=== PATIENT | male | born 1970 | race African-American/Black ===

== ENCOUNTER 2024-09-08 10:00 | Emergency (ER) | payer MEDICARE, MEDICAID, SELFPAY ==
[2024-09-08 10:05] VITALS: BP 146/80; PULSE 70; RESP 16; TEMP 36.6; O2SAT 100
--- OUTSIDE RECORDS SUMMARY | 2024-09-08 10:12 | XMS_ITS | Patient Health Summary ---
Author Organization [facility] Address [address] [place] [address] Care Team Providers Care Finish Carpenter Name Role Phone Dena James JANITOR-SHEET ROCK TAPER Primary Care Provider Note from [facility],non-owned Affiliates and Associated Physician Practices is amultiple site organization consisting of ambulatory clinics and hospital sitesin [place], [place], [place] and [place]. This disclosure is being madepursuant to the Care Everywhere program and may not contain all information available regarding this patient. Last updated 18.[facility] Allergies * Diphenhydramine(Unknown) * Ciprofloxacin(Itching) * Diazepam(Unknown) * Zinc(Unknown) Medications * Be aware that medications may not be up to date on this document. Alwaysverify current medications with the patient. * ferrous sulfate 325 (65 FE) MG tablet Take 1 (one) tablet by mouth 2 times daily * Potassium 99 MG tablet Take 1 (one) tablet by mouth every evening * multivitamin daily tablet Take 1 (one) tablet by mouth daily with food * amLODIPine (NORVASC) 5 MG tablet(Started 02/28/2021) Take 1 (one) tablet by mouth once daily * metoprolol succinate XL 24hr (TOPROL XL) 25 MG tablet(Started 02/22/2021) Take 2 (two) tablets by mouth once daily * fluocinonide (Lidex) 0.05 % cream(Started 09/23/2022) Use as directed * lactulose (Chronulac) 10 GM/15ML solution(Started 10/03/2022) TAKE 15 ML BY MOUTH ONCE DAILY NEEDED FOR CONSTIPATION * biotin 300 MCG tablet(Started 11/30/2021) Take 1 (one) tablet by mouth at bedtime Active Problems Problem Noted Date Diagnosed Date Anemia 10/21/2020 Urinary tract infection asso ciated with indwelling urethral catheter 10/21/2020 Resolved Problems Problem Noted Date Diagnosed Date Resolved Date Fever 10/21/2020 10/22/2020 Social History Tobacco Use Types Packs/Day Years Used Date Smoking Tobacco: Never Smokeless Tobacco: Never Tobacco Cessation:Counseling Given: Not Answered Alcohol Use Standard Drinks/Week Comments Never 0 (1 standard drink = 0.6 oz pur e alcohol) AUDIT-C Answer Date Recorded Q1: How often do you have a drink containing alcohol? Never 08/02/2022 Q2: How many drinks containi ng alcohol do you have on a typical day when you are drinking? Patient does not drink Q3: How often do you have si x or more drinks on one occasion? Never 08/02/2022 Sex and Gender Information Value Date Recorded Sex Assigned at Not on file Gender Identity Not on file Sexual Orientation Not on file Last Filed Vital Signs Vital Sign Reading Time Taken Comments Blood Pressure 150/71 10/24/2022 5:29 PM CDT Pulse 80 10/24/2022 5:29 PM CDT Temperature 36.8 C (98.2 F) 10/24/2022 5:29 PM CDT Respiratory Rate 18 10/24/2022 5:29 PM CDT Oxygen Saturation 98% 10/24/2022 5:29 PM CDT Inhaled Oxygen Concentration - - Weight 63.5 kg (140 lb) 10/24/2022 3:25 PM CDT Height 198.1 cm (6' 6 ) 10/24/2022 3:25 PM CDT Body Mass Index 16.18 10/24/2022 3:25 PM CDT Procedures * URINE MICROSCOPIC ONLY(Performed 10/24/2022) * URINALYSIS REFLEX TO MICROSCOPIC NO CULTURE(Performed 10/24/2022) * CULTURE URINE(Performed 10/24/2022) * URINE MICROSCOPIC ONLY REFLEX TO CULTURE(Performed 08/02/2022) * URINALYSIS REFLEX MICROSCOPIC REFLEX CULTURE(Performed 08/02/2022) * CULTURE URINE(Performed 08/02/2022) * CT ABDOMEN PELVIS W CONTRAST(Performed 06/19/2021) Performed for Suprapubic catheter dysfunction, initial encounter (HCC), Abdominal pain, generalized * CULTURE WOUND+GRAM STAIN(Performed 06/19/2021) * URINE MICROSCOPIC ONLY REFLEX TO CULTURE(Performed 06/19/2021) * URINALYSIS REFLEX MICROSCOPIC REFLEX CULTURE(Performed 06/19/2021) * CULTURE URINE(Performed 06/19/2021) * CULTURE BLOOD(Performed 06/19/2021) * PROCALCITONIN LEVEL(Performed 06/19/2021) * COMPREHENSIVE METABOLIC PANEL(Performed 06/19/2021) * CBC W AUTO DIFFERENTIAL(Performed 06/19/2021) * LACTIC ACID BLOOD REFLEX TO REPEAT(Performed 06/19/2021) * CULTURE BLOOD(Performed 06/19/2021) * ED CRITICAL CARE(Performed 06/19/2021) Performed for Suprapubic catheter dysfunction, initial encounter (HCC), Abdominal pain, generalized * CARDIAC EKG ORDER(Performed 03/19/2021) * COMPREHENSIVE METABOLIC PANEL(Performed 03/15/2021) * CBC W AUTO DIFFERENTIAL(Performed 03/15/2021) * EKG 12-LEAD(Performed 03/15/2021) Performed for Essential hypertension * SLIDE SCAN HEMATOLOGY(Performed 10/22/2020) * CBC W AUTO DIFFERENTIAL(Performed 10/22/2020) * BASIC METABOLIC PANEL (CALCIUM TOTAL)(Performed 10/22/2020) * IRON + TRANSFERRIN PANEL(Performed 10/22/2020) * PLATELET COUNT AUTO(Performed 10/22/2020) * CREATININE BLOOD(Performed 10/22/2020) * XR CHEST 1VW PORTABLE(Performed 10/21/2020) Performed for Fever in other diseases * URINE MICROSCOPIC ONLY REFLEX TO CULTURE(Performed 10/20/2020) * URINALYSIS REFLEX MICROSCOPIC REFLEX CULTURE(Performed 10/20/2020) * CULTURE URINE(Performed 10/20/2020) * CULTURE BLOOD(Performed 10/20/2020) * CULTURE BLOOD(Performed 10/20/2020) * DIFFERENTIAL MANUAL(Performed 10/20/2020) * LACTIC ACID BLOOD REFLEX TO REPEAT(Performed 10/20/2020) * COMPREHENSIVE METABOLIC PANEL(Performed 10/20/2020) * CBC W AUTO DIFFERENTIAL(Performed 10/20/2020) * URINE MICROSCOPIC ONLY REFLEX TO CULTURE(Performed 2020) * URINALYSIS REFLEX MICROSCOPIC REFLEX CULTURE(Performed 2020) * CULTURE URINE(Performed 2020) * GROSS + MICRO EXAM(Performed 09/19/1998) Results * (ABNORMAL) URINALYSIS REFLEX TO MICROSCOPIC NO CULTURE (10/24/2022 3:36 PM CDT) Color UA Yellow Straw, Yellow, Dark Yellow 10/24/2022 4:00 PM CDT [facility] Clarity UA Slt Cloudy(A) Clear 10/24/2022 4:00 PM CDT [facility] Glucose UA Negative Negative 10/24/2022 4:00 PM CDT [facility] Bilirubin UA Negative Negative 10/24/2022 4:00 PM CDT [facility] Ketone UA 1+(A) Negative 10/24/2022 4:00 PM CDT [facility] Specific [place] UA 1.014 1.005 - 1.030 10/24/2022 4:00 PM CDT [facility] Blood UA 2+(A) Negative 10/24/2022 4:00 PM CDT [facility] pH UA 6.0 5.0 - 8.0 pH 10/24/2022 4:00 PM CDT [facility] Protein UA 2+(A) Negative 10/24/2022 4:00 PM CDT [facility] Urobilinogen UA Negative Negative mg/dL 10/24/2022 4:00 PM CDT [facility] Nitrite UA Positive(A) Negative 10/24/2022 4:00 PM CDT [facility] Leukocyte UA 3+(A) Negative 10/24/2022 4:00 PM CDT [facility] Urine Microscopy Urine microscopy to follow 10/24/2022 4:00 PM CDT [facility] Urine URINE SPECIMEN COLLECTION, CATHETERIZED / Unknown Collection / Unknown 10/24/2022 3:36 PM CDT 10/24/2022 3:42 PM CDT Narrative [facility] - 10/24/2022 4:00 PM CDT Ascorbic Acid can cause false negative urine strip tests for blood, glucose, nitrite, and bilirubin. Mayra Neil APRN-SHEET ROCK TAPER LAB - URINALYSIS ORD ERABLES Performing Organization Address [facility]/ZIP Co de Phone Number [facility] [address] * (ABNORMAL) URINE MICROSCOPIC ONLY (10/24/2022 3:36 PM CDT) Pathologist [facility] RBC UA 11-20(A) 0 - 5 # /hpf 10/24/2022 4:00 PM CDT [facility] WBC UA 21-50(A) None Seen, 0-5 # /hpf 10/24/2022 4:00 PM CDT [facility] Budding Yeast Occasional (A) None seen /hpf 10/24/2022 4:00 PM CDT [facility] Hyaline Casts 0-2 None Seen, 0-2 /LPF 10/24/2022 4:00 PM CDT [facility] Bacteria UA 2+(A) None Seen 10/24/2022 4:00 PM CDT [facility] Squamous Epithelial Cells None Seen None Seen, 0-2, 3-5 /hpf 10/24/2022 4:00 PM CDT [facility] Mucus UA 1+ /LPF 10/24/2022 4:00 PM CDT [facility] Urine URINE SPECIMEN COLLECTION, CATHETERIZED / Unknown Collection / Unknown 10/24/2022 3:36 PM CDT 10/24/2022 3:42 PM CDT Narrative [facility] - 10/24/2022 4:00 PM CDT Mayra Neil JANITOR-SHEET ROCK TAPER LAB - URINALYSIS ORD ERABLES Performing Organization Address [facility] Co de Phone Number [facility] [address] * CULTURE URINE (10/24/2022 3:36 PM CDT) Only the most recent of5 resultswithin the time period is included. Pathologist [facility] Culture Urine More than 2 organisms seen at >=50,000 CFU/mL. Recollect if clinically indicated. YINA 10/26/2022 3:09 PM CDT [facility] Urine URINE SPECIMEN OBTAINED BY CLEAN CATCH PROCEDURE / Unknown Collection / Unknown 10/24/2022 3:36 PM CDT 10/24/2022 3:42 PM CDT Narrative [facility] - 10/26/2022 3:09 PM CDT Mayra MEJIA LAB - MICROBIOLOGY O RDERABLES [facility] [address] [place] [address], [facility] [phone] * (ABNORMAL) URINE MICROSCOPIC ONLY REFLEX TO CULTURE (08/02/2022 6:55 PM INSTRUMENT ASSEMBLY SUPERVISOR) Only the most recent of4 resultswithin the time period is included. Reflex Status Culture to follow 08/02/2022 7:11 PM INSTRUMENT ASSEMBLY SUPERVISOR [facility] RBC UA 11-20(A) 0 - 5 # /hpf 08/02/2022 7:11 PM [facility] WBC UA >100(A) None Seen, 0-5 # /hpf 08/02/2022 7:11 PM [facility] WBC Clumps UA Few(A) None Seen /HPF 08/02/2022 7:11 PM [facility] Bacteria UA 3+(A) None Seen 08/02/2022 7:11 PM [facility] Squamous Epithelial Cells 0-2 None Seen, 0-2, 3-5 /hpf 08/02/2022 7:11 PM [facility] Mucus UA 1+ /LPF 08/02/2022 7:11 PM [facility] Urine SUPRAPUBIC URINE SPECIMEN / Unknown Collection / Unknown 08/02/2022 6:55 PM INSTRUMENT ASSEMBLY SUPERVISOR 08/02/2022 7:02 PM INSTRUMENT ASSEMBLY SUPERVISOR Narrative [facility] - 08/02/2022 7:11 PM INSTRUMENT ASSEMBLY SUPERVISOR Ilan Jiang DO LAB - URINALYSIS ORD ERABLES [facility] [address] [place], [place] [id number] [place] [address] * (ABNORMAL) URINALYSIS REFLEX MICROSCOPIC REFLEX CULTURE (08/02/2022 6:55 PM INSTRUMENT ASSEMBLY SUPERVISOR) Only the most recent of4 resultswithin the time period is included. Color UA Yellow Straw, Yellow, Dark Yellow 08/02/2022 7:11 PM [facility] Clarity UA Cloudy(A) Clear 08/02/2022 7:11 PM INSTRUMENT ASSEMBLY SUPERVISOR [facility] Glucose UA Negative Negative 08/02/2022 7:11 PM [facility] Bilirubin UA Negative Negative 08/02/2022 7:11 PM [facility] Ketone UA Trace(A) Negative 08/02/2022 7:11 PM [facility] Specific [place] UA 1.014 1.005 - 1.030 08/02/2022 7:11 PM [facility] Blood UA 1+(A) Negative 08/02/2022 7:11 PM [facility] pH UA 6.0 5.0 - 8.0 pH 08/02/2022 7:11 PM [facility] Protein UA 2+(A) Negative 08/02/2022 7:11 PM [facility] Urobilinogen UA Negative Negative mg/dL 08/02/2022 7:11 PM [facility] Nitrite UA Negative Negative 08/02/2022 7:11 PM [facility] Leukocyte UA 3+(A) Negative 08/02/2022 7:11 PM [facility] Urine Microscopy Urine microscopy to follow 08/02/2022 7:11 PM [facility] Urine SUPRAPUBIC URINE SPECIMEN / Unknown Collection / Unknown 08/02/2022 6:55 PM INSTRUMENT ASSEMBLY SUPERVISOR 08/02/2022 7:02 PM [facility] Narrative [facility] - 08/02/2022 7:11 PM [facility] Ascorbic Acid can cause false negative urine strip tests for blood, glucose, nitrite, and bilirubin. Ilan Jiang DO LAB - URINALYSIS ORD ERABLES Performing Organization Address City/State/[facility] Co de Phone Number [facility] [address] * CT ABDOMEN AND PELVIS W IV CONTRAST [id number] (06/19/2021 12:00 PM INSTRUMENT ASSEMBLY SUPERVISOR) Anatomical Region Laterality Modality Abdomen, Pelvis Computed Tomogra phy 06/19/2021 12:3 7 PM INSTRUMENT ASSEMBLY SUPERVISOR Addenda Addendum by Jessica Sanchez MD on 06/19/2021 12:56 PM INSTRUMENT ASSEMBLY SUPERVISOR Addendum should read as follows. Please disregard sentence pulmonary embolus. Instead it should read unremarkable adrenal glands. *Addending Radiologist: Jessica Sanchez on 06/19/2021 at 12:53 PM Impressions 06/19/2021 12:39 PM INSTRUMENT ASSEMBLY SUPERVISOR As described above *Reading Radiologist: Jessica Sanchez on 06/19/2021 at 12:39 PM Narrative 06/19/2021 12:39 PM INSTRUMENT ASSEMBLY SUPERVISOR PROCEDURE: CT ABDOMEN PELVIS W CONTRAST 06/19/2021 12:37 PM HISTORY: Breakdown (mechanical) of cystostomy catheter, initial encounter. FINDINGS AND IMPRESSION: COMPARISON: No comparison. CONTRAST: 80 cc Isovue-300 IV. Radiation dose reduction technique was utilized. FINDINGS: Lung bases are clear. No intrahepatic ductal dilation or mass lesions. Spleen is normal. Significant cholelithiasis. Contracted gallbladder. Pulmonary embolus. Unremarkable pancreas. Redemonstration of bilateral renal cysts. Kidneys otherwise are unremarkable Catheter is noted in bladder. No free fluid or lymphadenopathy. No focal intra-abdominal pelvic mass. No evidence of small bowel obstruction. Constipation. Appendix is normal. Abdominal aortic atherosclerosis. No evidence of AAA. DJD spine. Deformities of hip joint space erosive changes. Procedure Note Jessica Sanchez MD - 06/19/2021 PROCEDURE: CT ABDOMEN PELVIS W CONTRAST 06/19/2021 12:37 PM HISTORY: Breakdown (mechanical) of cystostomy catheter, initial encounter. FINDINGS AND IMPRESSION: COMPARISON: No comparison. CONTRAST: 80 cc Isovue-300 IV. Radiation dose reduction technique was utilized. FINDINGS: Lung bases are clear. No intrahepatic ductal dilation or mass lesions. Spleen is normal. Significant cholelithiasis. Contracted gallbladder. Pulmonary embolus. Unremarkable pancreas. Redemonstration of bilateral renal cysts. Kidneys otherwise are unremarkable Catheter is noted in bladder. No free fluid or lymphadenopathy. No focal intra-abdominal pelvic mass. No evidence of small bowel obstruction. Constipation. Appendix is normal. Abdominal aortic atherosclerosis. No evidence of AAA. DJD spine. Deformities of hip joint space erosive changes. IMPRESSION As described above *Reading Radiologist: Jessica Sanchez on 06/19/2021 at 12:39 PM Kim Espinoza MD CT ORDERABLES * (ABNORMAL) CULTURE WOUND+GRAM STAIN (06/19/2021 10:41 AM INSTRUMENT ASSEMBLY SUPERVISOR) Culture Heavy Pseudomonas aeruginosa(A) YINA 06/22/2021 11:11 PM INSTRUMENT ASSEMBLY SUPERVISOR [facility] Culture Heavy Pseudomonas aeruginosa(A) YINA 06/22/2021 11:11 PM [facility] Comment:Strain 2 Culture Heavy Klebsiella pneumoniae(A) YINA 06/22/2021 11:11 PM [facility] Culture Heavy Corynebacterium species(A) YINA 06/22/2021 11:11 PM [facility] Culture Moderate Staphylococcus aureus methicillin-resista nt (MRSA)(A) YINA 06/22/2021 11:11 PM [facility] Comment:Staphylococcus aureu s methicillin-resistant (MRSA) detected by penicillin binding protein immunoassay. Contact precautions required. Conventional antibiotic susceptibility testing to follow. Gram Stain Moderate Polymorphonuclear cells 06/22/2021 11:11 PM [facility] Gram Stain Light Red blood cells 06/22/2021 11:11 PM [facility] Gram Stain Light Squamous epithelial cells 06/22/2021 11:11 PM [facility] Gram Stain Heavy Gram-positive bacilli 06/22/2021 11:11 PM [facility] Gram Stain Light Gram-positive cocci 06/22/2021 11:11 PM [facility] Microbiology ASSESSMENT OF CATHETER ENTRY SITE / Unknown Collection / Unknown 06/19/2021 10:41 AM INSTRUMENT ASSEMBLY SUPERVISOR 06/19/2021 10:46 AM [facility] - 06/22/2021 11:11 PM [facility] Methicillin-resistant Staphylococci (MRSA) are resistant to all currently available beta-lactam antibiotics with the exception of the newer cephalosporins with anti-MRSA activity. Contact precautions required. Organism Antibiotic Method Susceptibility Pseudomonas aeruginosa Amikacin YINA <=2 ug/mL: Susceptible Pseudomonas aeruginosa Cefepime YINA 4 ug/mL: Susceptible Pseudomonas aeruginosa Ceftazidime YINA 8 ug/mL: Susceptible Pseudomonas aeruginosa Ciprofloxacin YINA 1 ug/mL: Intermediate Pseudomonas aeruginosa Gentamicin YINA <=1 ug/mL: Susceptible Pseudomonas aeruginosa Meropenem YINA 4 ug/mL: Intermediate Pseudomonas aeruginosa Tobramycin YINA <=1 ug/mL: Susceptible Pseudomonas aeruginosa Piperacillin-tazobactam KB Susceptible Pseudomonas aeruginosa Amikacin YINA <=2 ug/mL: Susceptible Pseudomonas aeruginosa Cefepime YINA <=1 ug/mL: Susceptible Pseudomonas aeruginosa Ceftazidime YINA 2 ug/mL: Susceptible Pseudomonas aeruginosa Ciprofloxacin YINA 1 ug/mL: Intermediate Pseudomonas aeruginosa Gentamicin YINA <=1 ug/mL: Susceptible Pseudomonas aeruginosa Meropenem YINA 2 ug/mL: Susceptible Pseudomonas aeruginosa Piperacillin-tazobactam YINA <=4 ug/mL: Susceptible Pseudomonas aeruginosa Tobramycin YINA <=1 ug/mL: Susceptible Klebsiella pneumoniae Amikacin YINA <=2 ug/mL: Susceptible Klebsiella pneumoniae Ampicillin-sulbactam YINA 16 ug/mL: Intermediate Klebsiella pneumoniae Cefepime YINA <=1 ug/mL: Susceptible Klebsiella pneumoniae Ceftriaxone YINA <=1 ug/mL: Susceptible Klebsiella pneumoniae Ciprofloxacin YINA 1 ug/mL: Resistant Klebsiella pneumoniae Extended-Spectrum Beta-Lactamase YINA NEG ug/mL: Neg Klebsiella pneumoniae Gentamicin YINA <=1 ug/mL: Susceptible Klebsiella pneumoniae Meropenem YINA <=0.25 ug/mL: Susceptible Klebsiella pneumoniae Piperacillin-tazobactam YINA 8 ug/mL: Susceptible Klebsiella pneumoniae Tobramycin YINA <=1 ug/mL: Susceptible Klebsiella pneumoniae Trimethoprim-sulfa methox azole YINA <=20 ug/mL: Susceptible Comment: Automated methods are unable to differentiate between susceptible and intermediate results for cefazolin in Enterobacteriaceae from sources other than urine. Therefore, results are only reported when resistance is detected. If cefazolin susceptibility testing is needed but not reported, please call microbiology lab to request manual [phone]. Staphylococcus aureus methicillin-resistant (MRSA) Clindamycin YINA 0.25 ug/mL: Susceptible Staphylococcus aureus methicillin-resistant (MRSA) Doxycycline YINA 1 ug/mL: Susceptible Staphylococcus aureus methicillin-resistant (MRSA) Gentamicin YINA <=0.5 ug/mL: Susceptible Staphylococcus aureus methicillin-resistant (MRSA) Inducible Clindamycin Resistance YINA NEG ug/mL: Neg Staphylococcus aureus methicillin-resistant (MRSA) Linezolid YINA 2 ug/mL: Susceptible Staphylococcus aureus methicillin-resistant (MRSA) Oxacillin YINA >=4 ug/mL: Resistant Staphylococcus aureus methicillin-resistant (MRSA) Tetracycline YINA <=1 ug/mL: Susceptible Staphylococcus aureus methicillin-resistant (MRSA) Trimethoprim-sulfamethox azole YINA <=10 ug/mL: Susceptible Staphylococcus aureus methicillin-resistant (MRSA) Vancomycin YINA <=0.5 ug/mL: Susceptible Kim Espinoza MD LAB - MICROBIOLOGY O RDERABLES [facility] [address] [place], [place] [address] [phone] * CULTURE BLOOD (06/19/2021 10:36 AM INSTRUMENT ASSEMBLY SUPERVISOR) Only the most recent of4 resultswithin the time period is included. Culture No growth day 5 YINA 06/25/2021 12:00 AM INSTRUMENT ASSEMBLY SUPERVISOR [facility] Blood PERIPHERAL BLOOD / Unknown Venipuncture / Unknown 06/19/2021 10:36 AM INSTRUMENT ASSEMBLY SUPERVISOR 06/19/2021 10:46 AM INSTRUMENT ASSEMBLY SUPERVISOR Kim Espinoza MD LAB - MICROBIOLOGY O RDERABLES [facility] [address] [place] [address], [facility] [phone] * LACTIC ACID BLOOD REFLEX TO REPEAT (06/19/2021 10:31 AM INSTRUMENT ASSEMBLY SUPERVISOR) Only the most recent of2 resultswithin the time period is included. Lactic Acid 1.76 0.5 - 2 mmol/L 06/19/2021 11:05 AM INSTRUMENT ASSEMBLY SUPERVISOR [facility] Comment:3+ hemolysis Blood BLOOD SPECIMEN / Unknown Venipuncture / Unknown 06/19/2021 10:31 AM INSTRUMENT ASSEMBLY SUPERVISOR 06/19/2021 10:46 AM INSTRUMENT ASSEMBLY SUPERVISOR Kim Espinoza MD LAB - CHEMISTRY ORDE [facility] [address] * PROCALCITONIN LEVEL (06/19/2021 10:31 AM INSTRUMENT ASSEMBLY SUPERVISOR) Procalcitonin 0.07 <=0.10 ng/mL 06/19/2021 11:32 AM INSTRUMENT ASSEMBLY SUPERVISOR [facility] Comment:2+ hemolysis Blood BLOOD SPECIMEN / Unknown Venipuncture / Unknown 06/19/2021 10:31 AM INSTRUMENT ASSEMBLY SUPERVISOR 06/19/2021 10:46 AM INSTRUMENT ASSEMBLY SUPERVISOR Narrative [facility] - 06/19/2021 11:32 AM INSTRUMENT ASSEMBLY SUPERVISOR If baseline PCT is - >2.0 ng/mL: A PCT level above 2.0 ng/mL on the first day of ICU admission is associated with a high risk for progression to severe sepsis and/or septic shock. - <0.5 ng/mL: A PCT level below 0.5 ng/mL on the first day of ICU admission is associated with a low risk for progression to severe sepsis and/or septic shock. If the Procalcitonin measurement is performed shortly after systemic infection process has started (usually less than 6 hours), these values may still be low. As various non-infectious conditions are known to induce procalcitonin as well, Procalcitonin levels between 0.50 ng/mL and 2.00 ng/mL should be reviewed carefully to take into account the specific clinical background and condition(s) of the individual patient. The change in procalcitonin (PCT) concentration over time provides support in decision making on antibiotic discontinuation for suspected or confirmed septic patients and for suspected or confirmed lower respiratory tract infection (LRTI). Follow-up samples should be tested once every 1-2 days based upon physician discretion taking into account the patient's evolution and progress. Discontinuation of antibiotic therapy may be considered for suspected or confirmed septic patients if the current PCT is <= 0.5 ng/mL or <= 0.25 ng/mL for confirmed LRTI. If the PCT delta drop is > 80% in either condition, discontinuation of antibiotic therapy may be indicated. Duration of antibiotics should not be determined solely on PCT; established guidelines for the indication should be followed. Results should be interpreted in the context of a patient's clinical status and other laboratory tests. PCT peak: Highest observed PCT concentration PCT current: Most recent PCT concentration Calculate delta PCT using the following equation: Delta PCT = PCT Peak - PCT current X 100% PCT Peak The Change in Procalcitonin Calculator is available at [email or web address] If clinical picture has not improved and PCT remains high, reevaluate and consider treatment failure or other causes. Kim Espinoza MD LAB - CHEMISTRY [facility]IRY DUEÑAS [facility] Organization Address City/State/ZIP Co de Phone Number [facility] [address] * (ABNORMAL) CBC W AUTO DIFFERENTIAL (06/19/2021 10:31 AM INSTRUMENT ASSEMBLY SUPERVISOR) Only the most recent of4 resultswithin the time period is included. [facility] Signature WBC 7.4 4.0 - 10.0 x10E9/L 06/19/2021 10:50 AM [facility] RBC 3.70(L) 4.40 - 6.10 x10E12/L 06/19/2021 10:50 AM [facility] Hemoglobin 9.6(L) 13.7 - 17.5 gm/dL 06/19/2021 10:50 AM [facility] Hematocrit 29.3(L) 40.1 - 51.0 % 06/19/2021 10:50 AM [facility] MCV 79.2 78.0 - 100.0 fl 06/19/2021 10:50 AM [facility] MCH 25.9 25.6 - 34.0 pg 06/19/2021 10:50 AM [facility] MCHC 32.8 32.3 - 36.5 gm/dL 06/19/2021 10:50 AM [facility] RDW 17.7(H) 11.6 - 14.4 % 06/19/2021 10:50 AM [facility] MPV 9.8 9.4 - 12.4 fl 06/19/2021 10:50 AM [facility] Platelet Count 396(H) 163 - 369 x10E9/L 06/19/2021 10:50 AM [facility] Neutrophils % 66.6 40.0 - 75.0 % 06/19/2021 10:50 AM [facility] Lymphocytes % 14.5(L) 19.3 - 53.1 % 06/19/2021 10:50 AM [facility] Monocytes % 16.5(H) 4.7 - 12.5 % 06/19/2021 10:50 AM [facility] Eosinophils % 1.8 0.7 - 7.0 % 06/19/2021 10:50 AM [facility] Basophils % 0.3 0.1 - 1.2 % 06/19/2021 10:50 AM [facility] Immature Granulocytes 0.3 0 - 0.5 % 06/19/2021 10:50 AM [facility] Neutrophil Absolute 4.94 1.56 - 6.13 x10E9/L 06/19/2021 10:50 AM [facility] Lymphocytes Absolute 1.07(L) 1.18 - 3.74 x10E9/L 06/19/2021 10:50 AM [facility] Monocytes Absolute 1.22(H) 0.24 - 0.86 x10E9/L 06/19/2021 10:50 AM [facility] Eosinophils Absolute 0.13 0.04 - 0.54 x10E9/L 06/19/2021 10:50 AM [facility] Basophils Absolute 0.02 0.01 - 0.08 x10E9/L 06/19/2021 10:50 AM [facility] Immature Granulocytes Absolute 0.02 0 - 0.03 x10E9/L 06/19/2021 10:50 AM [facility] nRBC Auto 0 <=0 /100 WBC 06/19/2021 10:50 AM [facility] nRBC Absolute 0.00 <=0 x10E9/L 06/19/2021 10:50 AM [facility] Blood BLOOD SPECIMEN / Unknown Venipuncture / Unknown 06/19/2021 10:31 AM INSTRUMENT ASSEMBLY SUPERVISOR 06/19/2021 10:46 AM [facility] Kim Espinoza MD LAB - HEMATOLOGY ORD ERABLES Performing Organization Address City/State/[facility] [place] Co de Phone Number [facility] [address] * (ABNORMAL) COMPREHENSIVE METABOLIC PANEL (06/19/2021 10:31 AM [facility]) Only the most recent of3 resultswithin the time period is included. [facility] Signature Glucose 100 70 - 125 mg/dL 06/19/2021 11:13 AM [facility] Sodium 138 136 - 145 mmol/L 06/19/2021 11:13 AM [facility] Potassium 4.0 3.4 - 4.5 mmol/L 06/19/2021 11:13 AM [facility] Comment:2+ hemolysis Chloride 104 98 - 107 mmol/L 06/19/2021 11:13 AM [facility] CO2 23 22 - 29 mmol/L 06/19/2021 11:13 AM [facility] Calcium 9.3 8.4 - 10.2 mg/dL 06/19/2021 11:13 AM [facility] Anion Gap 15 10 - 20 mmol/L 06/19/2021 11:13 AM [facility] BUN 13.1 8.4 - 25.7 mg/dL 06/19/2021 11:13 AM [facility] Creatinine 0.70(L) 0.72 - 1.25 mg/dL 06/19/2021 11:13 AM [facility] eGFR by MDRD >60 >60 mL/min/1.7 3m2 06/19/2021 11:13 AM [facility] eGFR by MDRD >60 >60 mL/min/1.7 3m2 06/19/2021 11:13 AM [facility] Alkaline Phosphatase 107 40 - 150 U/L 06/19/2021 11:13 AM [facility] ALT 14 5 - 55 U/L 06/19/2021 11:13 AM [facility] AST 27 5 - 34 U/L 06/19/2021 11:13 AM [facility] Protein Total 8.5(H) 6.4 - 8.3 gm/dL 06/19/2021 11:13 AM [facility] Albumin 2.1(L) 3.5 - 5.0 gm/dL 06/19/2021 11:13 AM [facility] Globulin Total 6.4(H) 2.6 - 4.0 gm/dL 06/19/2021 11:13 AM [facility] Albumin/Globulin Ratio 0.3(L) 0.9 - 1.6 06/19/2021 11:13 AM [facility] Bilirubin Total 0.2 0.2 - 1.2 mg/dL 06/19/2021 11:13 AM [facility] Blood BLOOD SPECIMEN / Unknown Venipuncture / Unknown 06/19/2021 10:31 AM INSTRUMENT ASSEMBLY SUPERVISOR 06/19/2021 10:46 AM [facility] Kim Espinoza MD LAB - CHEMISTRY GUSTAVOE LEANA [facility] Organization Address City/State/[facility] [place] Co de Phone Number [facility] [address] * Critical Care (06/19/2021 9:57 AM INSTRUMENT ASSEMBLY SUPERVISOR) Narrative Kim Espinoza MD - 06/19/2021 9:57 AM INSTRUMENT ASSEMBLY SUPERVISOR Kim Espinoza MD 06/19/2021 1:09 PM Critical Care Performed by: Kim Espinoza MD Authorized by: Kim Espinoza MD Critical care provider statement: Critical care time (minutes): 31 Critical care was necessary to treat or prevent imminent or life-threatening deterioration of the following conditions: Sepsis Critical care was time spent personally by me on the following activities: Ordering and performing treatments and interventions, ordering and review of laboratory studies, ordering and review of radiographic studies, pulse oximetry, re-evaluation of patient's condition, review of old charts, examination of patient, evaluation of patient's response to treatment, discussions with primary provider, discussions with consultants, development of treatment plan with patient or surrogate and blood draw for specimens Kim Espinoza MD PROCEDURE/MINOR SURG ICAL ORDERABLES * CARDIAC EKG ORDER (03/19/2021 6:00 AM CDT) Narrative 03/19/2021 6:00 AM CDT Ordered by an unspecified provider. Scanned Document CARDIAC SERVICES ORD ERABLES * EKG 12-LEAD (03/15/2021 8:39 AM CDT) Ventricular Rate 62 BPM [facility] Atrial Rate 62 BPM [facility] P-R Interval 118 ms [facility] QRS Duration ms 94 ms [facility] Q-T Interval ms 412 ms [facility] QTC Calculation (Bezet) 418 ms [facility] Calculated P Haskins 49 degrees [facility] MUSE Calculated R [place] 68 degrees [facility] M[facility] Calculated T [place] 47 degrees [facility] Interpretation EKG NORMAL SINUS RHYTHM NONSPECIFIC T WAVE ABNORMALITY ABNORMAL ECG CONFIRMED BY DR PAGAN ON 03/15/2021 Confirmed by JUSTIN PAGAN MD ([id number]), newspaper managing editor IRIS MANE ([id number]) on 03/23/2021 9:25:42 AM [facility] 03/15/2021 8:39 AM CDT 03/23/2021 9:25 AM CDT Zamzam Morales MD ECG ORDERABLES [facility] * (ABNORMAL) SLIDE SCAN HEMATOLOGY (10/22/2020 10:33 AM CDT) [facility] Platelet Estimation Increased( A) Normal, Adequate platelets 10/22/2020 12:14 PM CDT [facility] WBC Morph Normal 10/22/2020 12:14 PM CDT [facility] Anisocytosis 2+(A) None 10/22/2020 12:14 PM CDT [facility] Hypochromia 2+(A) None 10/22/2020 12:14 PM CDT [facility] Large Platelets 1+(A) None 12:14 PM CDT [facility] Blood BLOOD SPECIMEN / Unknown Lab Venipuncture / Unknown 10/22/2020 10:33 AM CDT 10/22/2020 10:36 AM CDT Bret Soto MD LAB - HEMATOLOG Y ORDERABLES Performing Organization Address City/[facility] de Phone Number [facility] [address] * BASIC METABOLIC PANEL (CALCIUM TOTAL) (10/22/2020 10:33 AM CDT) [facility] Glucose 87 70 - 125 mg/dL 10/22/2020 10:57 AM CDT [facility] Sodium 139 136 - 145 mmol/L 10/22/2020 10:57 AM CDT [facility] Potassium 3.6 3.4 - 4.5 mmol/L 10/22/2020 10:57 AM CDT [facility] Chloride 106 98 - 107 mmol/L 10/22/2020 10:57 AM CDT [facility] CO2 23 22 - 29 mmol/L 10/22/2020 10:57 AM CDT [facility] Calcium 8.5 8.4 - 10.2 mg/dL 10/22/2020 10:57 AM CDT [facility] Anion Gap 14 10 - 20 mmol/L 10/22/2020 10:57 AM CDT [facility] BUN 9.5 8.4 - 25.7 mg/dL 10/22/2020 10:57 AM CDT [facility] Creatinine 0.79 0.72 - 1.25 mg/dL 10/22/2020 10:57 AM CDT [facility] eGFR by MDRD >60 >60 mL/min/1.7 3m2 10/22/2020 10:57 AM CDT [facility] eGFR by MDRD >60 >60 mL/min/1.7 3m2 10/22/2020 10:57 AM CDT [facility] Blood BLOOD SPECIMEN / Unknown Lab Venipuncture / Unknown 10/22/2020 10:33 AM CDT 10/22/2020 10:36 AM CDT Bret Soto MD LAB - CHEMISTRY ORDERABLES Performing Organization Address [facility] Co de Phone Number [facility] [address] * (ABNORMAL) PLATELET COUNT AUTO (10/22/2020 3:21 AM CDT) Platelet Count 568(H) 163 - 369 x10E9/L 10/22/2020 3:53 AM CDT [facility] Blood BLOOD SPECIMEN / Unknown Lab Venipuncture / Unknown 10/22/2020 3:21 AM CDT 10/22/2020 3:49 AM CDT Amadeo Prescott MD LAB - HEMATOLOGY ORD ERABLES Performing Organization Address [facility] Co de Phone Number [facility] [address] [place] [address] * CREATININE BLOOD (10/22/2020 3:21 AM CDT) Creatinine 0.73 0.72 - 1.25 mg/dL 10/22/2020 4:12 AM CDT [facility] eGFR by MDRD >60 >60 mL/min/1.7 3m2 10/22/2020 4:12 AM CDT [facility] eGFR by MDRD >60 >60 mL/min/1.7 3m2 10/22/2020 4:12 AM CDT [facility] Blood BLOOD SPECIMEN / Unknown Lab Venipuncture / Unknown 10/22/2020 3:21 AM CDT 10/22/2020 3:49 AM CDT Amadeo Prescott MD LAB - CHEMISTRY ORDE LEANA Performing Organization Address [facility] de Phone Number [facility] [address] * (ABNORMAL) IRON + TRANSFERRIN PANEL (10/22/2020 3:21 AM CDT) [facility] Signature Iron 24(L) 65 - 175 ug/dL 10/22/2020 4:12 AM CDT [facility] Transferrin 109(L) 174 - 364 mg/dL 10/22/2020 4:12 AM CDT [facility] TIBC Calculated 136(L) 261 - 497 ug/dL 10/22/2020 4:12 AM CDT [facility] Iron Saturation % 18 11 - 45 % 10/22/2020 4:12 AM CDT [facility] Blood BLOOD SPECIMEN / Unknown Lab Venipuncture / Unknown 10/22/2020 3:21 AM CDT 10/22/2020 3:49 AM CDT Amadeo Prescott MD LAB - CHEMISTRY KEIRY DUEÑAS Performing Organization Address [facility] de Phone Number [facility] [address] * XR CHEST 1VW PORTABLE (10/21/2020 1:16 AM CDT) Anatomical Region Laterality Modality Chest Radiographic Samira ging 10/21/2020 6:56 AM CDT Impressions 10/21/2020 6:56 AM CDT No acute pathology or change Narrative 10/21/2020 6:56 AM CDT PROCEDURE: XR CHEST 1VW PORTABLE 10/21/2020 6:56 AM HISTORY: Fever presenting with conditions classified elsewhere. FINDINGS AND IMPRESSION: COMPARISON: No comparison. FINDINGS: Portable chest x-ray was obtained and compared to prior study. Clear lungs allowing for portable technique. The heart and vessels are radiographically normal. No soft tissue or bone abnormality is seen. Procedure Note Zeke Potter MD - 10/21/2020 PROCEDURE: XR CHEST 1VW PORTABLE 10/21/2020 6:56 AM HISTORY: Fever presenting with conditions classified elsewhere. FINDINGS AND IMPRESSION: COMPARISON: No comparison. FINDINGS: Portable chest x-ray was obtained and compared to prior study. Clear lungs allowing for portable technique. The heart and vessels are radiographically normal. No soft tissue or bone abnormality is seen. IMPRESSION No acute pathology or change Moreno E Long DO DIAGNOSTIC IMAGING O RDERABLES * (ABNORMAL) DIFFERENTIAL MANUAL (10/20/2020 8:59 PM CDT) WBC Auto 9.7 4.0 - 10.0 x10E9/L 10/20/2020 9:54 PM CDT [facility] Neutrophils % Manual 69 40 - 75 % 10/20/2020 9:54 PM CDT [facility] Lymphocytes % Manual 14(L) 19 - 53 % 10/20/2020 9:54 PM CDT [facility] Monocytes % Manual 14(H) 5 - 13 % 10/20/2020 9:54 PM CDT [facility] Eosinophils % Manual 3 1 - 7 % 10/20/2020 9:54 PM CDT [facility] Neutrophils Absolute Manual 6.7(H) 1.6 - 6.1 x10E3/uL 10/20/2020 9:54 PM CDT [facility] Lymphocytes Absolute Manual 1.4 1.2 - 3.7 x10E3/uL 10/20/2020 9:54 PM CDT [facility] Monocytes Absolute Manual 1.4(H) 0.2 - 0.9 x10E3/uL 10/20/2020 9:54 PM CDT [facility] Eosinophils Absolute Manual 0.3 0.0 - 0.5 x10E3/uL 10/20/2020 9:54 PM CDT [facility] Cells Counted 100 # cells 10/20/2020 9:54 PM CDT [facility] Platelet Estimation Increased( A) Normal, Adequate platelets 10/20/2020 9:54 PM CDT [facility] WBC Morph Normal 10/20/2020 9:54 PM CDT [facility] Anisocytosis 1+(A) None 10/20/2020 9:54 PM CDT [facility] Hypochromia 1+(A) None 10/20/2020 9:54 PM CDT [facility] Microcytosis Occasional (A) None 10/20/2020 9:54 PM CDT [facility] Large Platelets Occasional (A) None 10/20/2020 9:54 PM CDT [facility] Blood BLOOD SPECIMEN / Unknown Venipuncture / Unknown 10/20/2020 8:59 PM CDT 10/20/2020 9:11 PM CDT Moreno Rojas Eddie DO LAB - HEMATOLOGY ORD ERABLES [facility] [address] * GROSS + MICRO EXAM (09/19/1998 9:17 AM INSTRUMENT ASSEMBLY SUPERVISOR) Result CASE NUMBER [id number] Comment: ORDERING PHYSICIAN ESVIN SAN SPECIMEN TYPE Decubitus Date 09/19/1998 Physician Pramod Gross Description The specimen is received in a single formalin-filled container, labeled with the patient's name and decubitus ulcer, left buttock . It contains a single rubbery, white and brown-marcos, irregularly-shaped tissue fragment measuring 2.5 x 2.7 x 2.2 cm in greatest dimension. The cut surface is white-marcos with areas of hemorrhage and central necrosis. A sales support representative section is submitted in a single cassette. JS/lmj Microscopic Exam The left buttock decubitus ulcer debridement shows soft tissue with ulcer and acute and chronic inflammation and young granulation tissue. No malignancy is identified. Diagnosis I. Left buttock, decubitus ulcer, debridement A. Chronic ulcer. Hotel Registration Clerk bk Pathologist Urban Baker M.D. [place]. 09/20/1998 1544 <1> CPT code 31807/71017 MISCELLANEOUS SAMPLES / Unknown 09/19/1998 9:17 AM INSTRUMENT ASSEMBLY SUPERVISOR 09/19/1998 9:17 AM INSTRUMENT ASSEMBLY SUPERVISOR Historical Provider LAB - PATHOLOGY/C YTOLOGY ORDERABLES Care Teams Finish Carpenter Relationship Specialty Start Date End Date Dena James, JANITOR-SHEET ROCK TAPER [address] [place] [address] PCP - General Plant Pathologist 08/02/22
--- OUTSIDE RECORDS SUMMARY | 2024-09-08 10:12 | XMS_ITS | Clinical Summary ---
Author Organization [facility] Address [address] [place] [address] Care Team Providers Care Director Learning And Development Name Role Phone Dena James ROGERIO-NATURAL RESOURCES SPECIALIST Primary Care Provider Source Comments [facility],non-owned Affiliates and Associated Physician Practices is amultiple site organization consisting of ambulatory clinics and hospital sitesin [place], [place], [place] and [place]. This disclosure is being madepursuant to the Care Everywhere program and may not contain all information available regarding this patient. Last updated 18.[facility] Bosideng Allergies Active Allergy Reactions Criticality Noted Date Comments Diphenhydramine Unknown 10/20/2020 Ciprofloxacin Itching 04/08/2022 Diazepam Unknown 10/20/2020 Zinc Unknown 10/20/2020 Medications * Be aware that medications may not be up to date on this document. Alwaysverify current medications with the patient. Medication Sig Dispensed Refills Start Date End Date Status ferrous sulfate 325 (65 FE) MG tablet Take 1 (one) tablet by mouth 2 times daily Active Potassium 99 MG tablet Take 1 (one) tablet by mouth every evening Active multivitamin daily tablet Take 1 (one) tablet by mouth daily with food Active amLODIPine (NORVASC) 5 MG tablet Take 1 (one) tablet by mouth once daily 02/28/2021 Active metoprolol succinate XL 24hr (TOPROL XL) 25 MG tablet Take 2 (two) tablets by mouth once daily 02/22/2021 Active fluocinonide (Lidex) 0.05 % cream Use as directed 09/23/2022 Active lactulose (Chronulac) 10 GM/15ML solution TAKE 15 ML BY MOUTH ONCE DAILY NEEDED FOR CONSTIPATION 10/03/2022 Active biotin 300 MCG tablet Take 1 (one) tablet by mouth at bedtime 11/30/2021 Active Active Problems Problem Noted Date Diagnosed Date [...] Mass Index 16.18 10/24/2022 3:25 PM CDT Plan of Treatment Health Maintenance Due Date Last Done Comments COLOGUARD (AGES 45-75) - COL ON CA SCREENING 1968 COLON MONITORING 1968 COLONOSCOPY - COLON CA SCREENING 1968 CT COLONOGRAPHY - COLON CA SCREENING 1968 Colorectal Cancer Screening 1968 FIT - COLON CA SCREENING 1968 FLEX SIG - COLON CA SCREENING 1968 LIPID TESTING 1968 HIV SCREENING 10/16/1983 HEPATITIS C SCREENING 10/11/1986 DTAP/TDAP/TD VACCINES (1 - Tdap) 10/16/1987 HEPATITIS B VACCINE (1 of 3 - 19+ 3-dose series) 10/16/1987 PNEUMOCOCCAL VACCINE 50+ (1 of 1 - PCV) 2018 ZOSTER VACCINE (1 of 2) 2018 COVID-19 VACCINE (4 - 2023-2 5 season) 2024 08/03/2021, 09/11/2020, 08/21/2020 INFLUENZA VACCINE (#1) 2024 , 08/03/2021 DEPRESSION SCREENING 07/21/2024 MEDICARE AWV CALENDAR YEAR 2024 HIB VACCINE Aged Out No longer eligi ble based on patient's age to complete this topic HPV VACCINE Aged Out No longer eligi ble based on patient's age to complete this topic MENINGOCOCCAL (Group B) VACCINE Aged Out No longer eligible b ased on patient's age to complete this topic MENINGOCOCCAL VACCINE Aged Out No tabatha tabatha eligible based on patient's age to complete this topic PNEUMOCOCCAL VACCINE Aged Out No long er eligible based on patient's age to complete this topic Additional Health Concerns Infection Onset Date Last Indicated 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
--- OUTSIDE RECORDS SUMMARY | 2024-09-08 10:12 | XMS_ITS | Data Portability ---
Author Organization [facility] Address [address] [place] [address] Assessment No assessment recorded. Plan of Treatment Reminders Order Date Submit Date Provider Last Modified By Organization Details Last Modified Time Details Appointments None recorded. Lab unlisted lab - urinalysis w/reflex urine cult 2023 024 atatema Diane [facility] (Lab), [address] [place], [address], 13:04:47 Referral None recorded. Procedures None recorded. Surgeries None recorded. Imaging None recorded. Medication Orders None recorded. Patient TargetsNo targets recorded. Patient Instructions Encounter Date Encounter Id Patient Instructions Last Modified By Organization Details Last Modified Time 12/31/2023 [id number] polo catheter change* [email or web address] Not available 01/13/2024 10:06:06 Will arrange for monthly visiting nurse to see and change cath monthly Not available 12/31/2023 12:03:44 07/07/2024 [id number] urinary retention: care instructions Not available 07/07/2024 13:00:07 Return to the office in 1 month if he needs catheter change. Not available 07/07/2024 12:39:08 08/06/2024 [id number] spinal cord injury (paraplegic): care instructions Not available 08/06/2024 13:54:26 Reason for Referral None Reported. Results Created Date Observation Date Name Description Value Unit Range Abnormal Flag Note LastModifiedBy Organization Detail LastModifiedTime 12/31/19 24 12/31/2023 URINA LYSIS AND MICRO SCOPI C color urine YELLOW yellow normal Not Available [facility] (Lab) [address] [place], [address], 12/31/2023 18:14:56 12/31/19 24 12/31/2023 URINA LYSIS AND MICRO SCOPI C appearance urine SL CLOUDY clear abnormal Not Available [facility] (Lab) [address], [place], [address], 12/31/2023 18:14:56 12/31/19 24 12/31/2023 URINA LYSIS AND MICRO SCOPI C pH urine 6.0 5.0 - 7.0 normal Not Available [facility] (Lab) [address] [place], [address], 12/31/2023 18:14:56 12/31/19 24 12/31/2023 URINA LYSIS AND MICRO SCOPI C specific gravity urine 1.020 1.005- 1.030 normal Not Available [facility] (Lab) [address] [place], [address], 12/31/2023 18:14:56 12/31/19 24 12/31/2023 URINA LYSIS AND MICRO SCOPI C protein urine 30 mg/dL neg/tr johnnie abnormal Not Available [facility] (Lab) [address] [place], [address], 12/31/2023 18:14:56 12/31/19 24 12/31/2023 URINA LYSIS AND MICRO SCOPI C glucose urine UA NEGATI VE mg/dL negati ve normal Not Available [facility] (Lab) [address] [place], [address], 12/31/2023 18:14:56 12/31/19 24 12/31/2023 URINA LYSIS AND MICRO SCOPI C ketones urine NEGATI VE negati ve normal Not Available [facility] (Lab) [address] [place], [address], 12/31/2023 18:14:56 12/31/19 24 12/31/2023 URINA LYSIS AND MICRO SCOPI C occult blood urine MODERA TE mika/u L negati ve abnormal Not Available [facility] (Lab) [address] [place], [address], 12/31/2023 18:14:56 12/31/19 24 12/31/2023 URINA LYSIS AND MICRO SCOPI C nitrite urine POSITI VE negati ve abnormal Not Available [facility] (Lab) [address] [facility], [place], [address], 12/31/2023 18:14:56 12/31/19 24 12/31/2023 URINA LYSIS AND MICRO SCOPI C bilirubin urine NEGATI VE negati ve normal Not Available [facility] (Lab) [address] [place], [address], 12/31/2023 18:14:56 12/31/19 24 12/31/2023 URINA LYSIS AND MICRO SCOPI C urobilinogen urine 0.2 eu/dL 0.2 - 1.0 normal Not Available [facility] (Lab) [address] [place], [address], 12/31/2023 18:14:56 12/31/19 24 12/31/2023 URINA LYSIS AND MICRO SCOPI C leukocyte esterase urine LARGE negati ve abnormal Not Available [facility] (Lab) [address] [facility], [place], [address], 12/31/2023 18:14:56 12/31/19 24 12/31/2023 URINA LYSIS AND MICRO SCOPI C RBC urine 0-2 /hpf 0-2 normal Not Available [facility] (Lab) [address] [place], [address], 12/31/2023 18:14:56 12/31/19 24 12/31/2023 URINA LYSIS AND MICRO SCOPI C WBC urine >50 /hpf 0-5 abnormal Not Available [facility] (Lab) [address] [place], [address], 12/31/2023 18:14:56 12/31/19 24 12/31/2023 URINA LYSIS AND MICRO SCOPI C WBC clumps urine FEW /hpf not estb. Not Available [facility] (Lab) [address] [facility], [place], [address], 12/31/2023 18:14:56 12/31/19 24 12/31/2023 URINA LYSIS AND MICRO SCOPI C squamous epithelial cell urine OCCASI ONAL not estb. Not Available [facility] (Lab) [address] [facility], [place], [address], 12/31/2023 18:14:56 12/31/19 24 12/31/2023 URINA LYSIS AND MICRO SCOPI C bacteria urine 1+ none/t race abnormal Not Available [facility] (Lab) [address] [facility], [place], [address], 12/31/2023 18:14:56 12/31/19 24 12/31/2023 URINA LYSIS AND MICRO SCOPI C urine culture indicated? Yes Not Available [facility] (Lab) [address] [facility], [place], [address], 12/31/2023 18:14:56 12/31/19 24 01/06/2024 URINE CULTU RE, ROUTI NE urine culture, routine Great er than 2 organ isms recov ered, none predo minan t. Pleas e submi t anoth er sampl e if clini marilyn indic ated. Great er than 100,0 00 colon y formi ng units per mL Not appli cable Perfo rmed at: 01 - [facility] [place] [address] Lab Direc tor: Kaveh siegel PhD, Phone : [phone] Not Available [facility] (Lab) [address] [place], [address], 01/06/2024 13:14:56 06/02/20 24 06/02/2024 Basic metab olic 2000 panel - Serum or Plasm a glucose [mass/volume ] in serum or plasma 102 text: 70 - 99 mg/dL high GLUCO SE 102 (H) 70 - 99 MG/DL 06/02 11:02 AM CARRIER OPERATOR [facility] Not Available Not Available 09/02/2024 15:43:05 06/02/20 24 06/02/2024 Basic metab olic 2000 panel - Serum or Plasm a urea nitrogen [mass/volume ] in serum or plasma 31 text: 7 - 18 mg/dL high BUN 31 (H) 7 - 18 MG/DL 06/02 11:02 AM [facility] LAB Not Available Not Available 09/02/2024 15:43:05 06/02/20 24 06/02/2024 Basic metab olic 2000 panel - Serum or Plasm a creatinine [mass/volume ] in serum or plasma 0.83 text: 0.7 - 1.3 mg/dL CREAT ININE S/P/B 0.83 0.7 - 1.3 MG/DL 06/02 11:02 AM [facility] LAB Not Available Not Available 09/02/2024 15:43:05 06/02/20 24 06/02/2024 Basic metab olic 2000 panel - Serum or Plasm a sodium [moles/volum e] in serum or plasma 141 text: 136 - 145 mmol/L SODIU M S/P/B 141 136 - 145 MMOL/ L 06/02 11:02 AM [facility] LAB Not Available Not Available 09/02/2024 15:43:05 06/02/20 24 06/02/2024 Basic metab olic 2000 panel - Serum or Plasm a potassium [moles/volum e] in serum or plasma 3.5 text: 3.5 - 5.1 mmol/L POTAS SIUM S/P/B 3.5 3.5 - 5.1 MMOL/ L 06/02 11:02 AM [facility] Not Available Not Available 09/02/2024 15:43:05 06/02/20 24 06/02/2024 Basic metab olic 2000 panel - Serum or Plasm a chloride [moles/volum e] in serum or plasma 105 text: 100 - 108 mmol/L CHLOR ANDRY S/P/B 105 100 - 108 MMOL/ L 06/02 11:02 AM [facility] Not Available Not Available 09/02/2024 15:43:05 06/02/20 24 06/02/2024 Basic metab olic 2000 panel - Serum or Plasm a carbon dioxide, total [moles/volum e] in serum or plasma 28.2 text: 21 - 32 mmol/L CO2 28.2 21 - 32 MMOL/ L 06/02 11:02 AM [facility] Not Available Not Available 09/02/2024 15:43:05 06/02/2006/02/2024 Basic metab olic 2000 panel - Serum or Plasm a calcium [mass/volume ] in serum or plasma 9.3 text: 8.5 - 10.1 mg/dL CALCI UM S/P/B 9.3 8.5 - 10.1 MG/DL 06/02 11:02 AM [facility] Not Available Not Available 09/02/2024 15:43:05 06/02/2006/02/2024 Basic metab olic 2000 panel - Serum or Plasm a anion gap in serum or plasma 7.8 text: 5 - 15 mmol/L ANION GAP 7.8 5 - 15 MMOL/ L 06/02 11:02 AM [facility] Not Available Not Available 09/02/2024 15:43:05 06/02/20 24 06/02/2024 Basic metab olic 2000 panel - Serum or Plasm a urea nitrogen/cre atinine [mass ratio] in serum or plasma 37.3 low: 6high: 26 high BUN CREAT ININE RATIO 37.3 (H) 6 - 26 06/02 11:02 AM CARRIER OPERATOR [facility] Not Available Not Available 09/02/2024 15:43:05 06/02/20 24 06/02/2024 Basic metab olic 2000 panel - Serum or Plasm a glomerular filtration rate/1.73 sq M.predicted [volume rate/area] in serum, plasma or blood by creatinine-b ased formula (CKD-epi 2020) text: >90 mL/min /1.73 M2 GFR ESTIM ATE >90 >90 ML/MD N/1.7 3 M2 06/02 11:02 AM CARRIER OPERATOR [facility] Not Available Not Available 09/02/2024 15:43:05 06/02/20 24 06/02/2024 Basic metab olic 2000 panel - Serum or Plasm a interpretati on and review of laboratory results Abnorm al Not Available Not Available 15:43:05 06/28/20 24 06/30/2024 Bacte claudia ident ified in Wound by Aerob e cultu re specimen source identified HEEL, RIGHT SPEC DESCR IPTIO N HEEL, RIGHT 06/28 11:42 AM CARRIER OPERATOR [facility] Not Available Not Available 09/02/2024 15:43:05 06/28/20 24 06/30/2024 Bacte claudia ident ified in Wound by Aerob e cultu re service comment NO SPECIA L REQUES T SPECI AL REQUE STS NO SPECI AL REQUE ST 06/28 11:42 AM CARRIER OPERATOR [facility] Not Available Not Available 09/02/2024 15:43:05 06/28/20 24 06/30/2024 Bacte claudia ident ified in Wound by Aerob e cultu re microscopic observation [identifier] in specimen by gram stain MANY WHITE BLOOD CELLS SEEN GRAM STAIN RESUL T MANY WHITE BLOOD CELLS SEEN 06/29 10:46 AM CARRIER OPERATOR [facility] Not Available Not Available 09/02/2024 15:43:05 06/28/20 24 06/30/2024 Bacte claudia ident ified in Wound by Aerob e cultu re microscopic observation [identifier] in specimen by gram stain FEW EPITHE LIAL CELLS SEEN GRAM STAIN RESUL T FEW EPITH ELIAL CELLS SEEN 06/29 10:46 AM CARRIER OPERATOR [facility]U DIAZ [facility] Not Available Not Available 09/02/2024 15:43:05 06/28/20 24 06/30/2024 Bacte claudia ident ified in Wound by Aerob e cultu re microscopic observation [identifier] in specimen by gram stain FEW GRAM POSITI VE COCCI GRAM STAIN RESUL T FEW GRAM POSIT LEXIS COCCI 06/29 10:46 AM CARRIER OPERATOR [facility] LAB Not Available Not Available 09/02/2024 15:43:05 06/28/20 24 06/30/2024 Bacte claudia ident ified in Wound by Aerob e cultu re microscopic observation [identifier] in specimen by gram stain RARE GRAM NEGATI VE RODS GRAM STAIN RESUL T RARE GRAM NEGAT LEXIS RODS 06/29 10:46 AM CARRIER OPERATOR [facility] LAB Not Available Not Available 09/02/2024 15:43:05 06/28/20 24 06/30/2024 Bacte claudia ident ified in Wound by Aerob e cultu re bacteria identified in specimen by culture SPARSE GROWTH OF PROTEU S MIRABI LIS abnormal CULTU RE RESUL T SPARS E GROWT H OF PROTE US MIRAB ILIS (A) 06/30 7:55 AM CARRIER OPERATOR [facility] LAB Not Available Not Available 09/02/2024 15:43:05 06/28/20 24 06/30/2024 Bacte claudia ident ified in Wound by Aerob e cultu re bacteria identified in specimen by culture SPARSE GROWTH OF METHIC ILLIN RESIST ANT STAPHY LOCOCC US AUREUS FOLLOW ISOLAT ION PROTOC OL. critical abnormal CULTU RE RESUL T SPARS E GROWT H OF METHI CILLI N RESIS TANT STAPH YLOCO CCUS AUREU S FOLLO W ISOLA TION MANAV COL. (AA) 06/30 7:55 AM CARRIER OPERATOR [facility] LAB Not Available Not Available 09/02/2024 15:43:05 06/28/20 24 06/30/2024 Bacte claudia ident ified in Wound by Aerob e cultu re interpretati on and review of laboratory results Abnorm al Not Available Not Available 15:43:05 07/22/19 25 07/22/2024 Thyro tropi n [Unit s/vol ume] in Serum or Plasm a thyrotropin [units/volum e] in serum or plasma 1.56 text: 0.358 - 3.74 uIU/mL TSH 1.560 0.358 - 3.74 uIU/M L 07/22 2:33 PM CARRIER OPERATOR [facility] Not Available Not Available 09/02/2024 15:43:05 07/22/19 25 07/22/2024 Compr ehens lexis metab olic 2000 panel - Serum or Plasm a glucose [mass/volume ] in serum or plasma 95 text: 70 - 99 mg/dL GLUCO SE 95 70 - 99 MG/DL 07/22 2:33 PM CARRIER OPERATOR [facility] Not Available Not Available 09/02/2024 15:43:05 07/22/19 25 07/22/2024 Compr ehens lexis metab olic 2000 panel - Serum or Plasm a urea nitrogen [mass/volume ] in serum or plasma 12 text: 7 - 18 mg/dL BUN 12 7 - 18 MG/DL 07/22 2:33 PM [facility] Not Available Not Available 09/02/2024 15:43:05 07/22/19 25 07/22/2024 Compr ehens lexis metab olic 2000 panel - Serum or Plasm a creatinine [mass/volume ] in serum or plasma 0.9 text: 0.7 - 1.3 mg/dL CREAT ININE S/P/B 0.90 0.7 - 1.3 MG/DL 07/22 2:33 PM CARRIER OPERATOR [facility] Not Available Not Available 09/02/2024 15:43:05 07/22/19 25 07/22/2024 Compr ehens lexis metab olic 2000 panel - Serum or Plasm a sodium [moles/volum e] in serum or plasma 139 text: 136 - 145 mmol/L SODIU M S/P/B 139 136 - 145 MMOL/ L 07/22 2:33 PM [facility] Not Available Not Available 09/02/2024 15:43:05 07/22/19 25 07/22/2024 Compr ehens lexis metab olic 2000 panel - Serum or Plasm a potassium [moles/volum e] in serum or plasma 3.9 text: 3.5 - 5.1 mmol/L POTAS SIUM S/P/B 3.9 3.5 - 5.1 MMOL/ L 07/22 2:33 PM [facility] Not Available Not Available 09/02/2024 15:43:05 07/22/19 25 07/22/2024 Compr ehens lexis metab olic 2000 panel - Serum or Plasm a chloride [moles/volum e] in serum or plasma 103 text: 100 - 108 mmol/L CHLOR ANDRY S/P/B 103 100 - 108 MMOL/ L 07/22 2:33 PM [facility] Not Available Not Available 09/02/2024 15:43:05 07/22/19 25 07/22/2024 Compr ehens lexis metab olic 2000 panel - Serum or Plasm a carbon dioxide, total [moles/volum e] in serum or plasma 29.6 text: 21 - 32 mmol/L CO2 29.6 21 - 32 MMOL/ L 07/22 2:33 PM [facility] Not Available Not Available 09/02/2024 15:43:05 07/22/19 25 07/22/2024 Compr ehens lexis metab olic 2000 panel - Serum or Plasm a calcium [mass/volume ] in serum or plasma 9.5 text: 8.5 - 10.1 mg/dL CALCI UM S/P/B 9.5 8.5 - 10.1 MG/DL 07/22 2:33 PM [facility] Not Available Not Available 09/02/2024 15:43:05 07/22/19 25 07/22/2024 Compr ehens lexis metab olic 2000 panel - Serum or Plasm a bilirubin.to rylie [mass/volume ] in serum or plasma 0.2 text: 0.2 - 1.2 mg/dL BILIR UBIN TOTAL S/P/B 0.2 0.2 - 1.2 MG/DL 07/22 2:33 PM CARRIER OPERATOR [facility] Not Available Not Available 09/02/2024 15:43:05 07/22/19 25 07/22/2024 Compr ehens lexis metab olic 1999 panel - Serum or Plasm a protein [mass/volume ] in serum or plasma 9.3 text: 6.4 - 8.2 g/dL high TOTAL PROTE IN S/P/B 9.3 (H) 6.4 - 8.2 G/DL 07/22 2:33 PM CARRIER OPERATOR [facility] Not Available Not Available 09/02/2024 15:43:05 07/22/19 25 07/22/2024 Compr ehens lexis metab olic 2000 panel - Serum or Plasm a albumin [mass/volume ] in serum or plasma 2.6 text: 3.4 - 5.0 g/dL low ALBUM IN S/P/B 2.6 (L) 3.4 - 5.0 G/DL 07/22 2:33 PM CARRIER OPERATOR [facility] Not Available Not Available 09/02/2024 15:43:05 07/22/19 25 07/22/2024 Compr ehens lexis metab olic 2000 panel - Serum or Plasm a aspartate aminotransfe rase [enzymatic activity/vol ume] in serum or plasma 17 U/L low: 15U/Lh igh: 37U/L AST 17 15 - 37 U/L 07/22 2:33 PM CARRIER OPERATOR [facility] Not Available Not Available 09/02/2024 15:43:05 07/22/19 25 07/22/2024 Compr ehens lexis metab olic 2000 panel - Serum or Plasm a alanine aminotransfe rase [enzymatic activity/vol ume] in serum or plasma 19 U/L low: 16U/Lh igh: 60U/L ALT 19 16 - 60 U/L 07/22 2:33 PM CARRIER OPERATOR [facility] Not Available Not Available 09/02/2024 15:43:05 07/22/19 25 07/22/2024 Compr ehens lexis metab olic 2000 panel - Serum or Plasm a alkaline phosphatase [enzymatic activity/vol ume] in serum or plasma 113 U/L low: 50U/Lh igh: 136U/L ALKAL INE PHOSP HATAS E S/P/B 113 50 - 136 U/L 07/22 2:33 PM CARRIER OPERATOR [facility] Not Available Not Available 09/02/2024 15:43:05 07/22/19 25 07/22/2024 Compr ehens lexis metab olic 2000 panel - Serum or Plasm a anion gap in serum or plasma 6.4 text: 5 - 15 mmol/L ANION GAP 6.4 5 - 15 MMOL/ L 07/22 2:33 PM CARRIER OPERATOR [facility] Not Available Not Available 09/02/2024 15:43:05 07/22/19 25 07/22/2024 Compr ehens lexis metab olic 2000 panel - Serum or Plasm a urea nitrogen/cre atinine [mass ratio] in serum or plasma 13.3 low: 6high: 26 BUN CREAT ININE RATIO 13.3 6 - 26 07/22 2:33 PM CARRIER OPERATOR [facility] Not Available Not Available 09/02/2024 15:43:05 07/22/19 25 07/22/2024 Compr ehens lexis metab olic 2000 panel - Serum or Plasm a albumin/glob ulin [mass ratio] in serum or plasma 0.4 text: 1.0 - 2.0 ratio low A/G RATIO 0.4 (L) 1.0 - 2.0 RATIO 07/22 2:33 PM CARRIER OPERATOR [facility] Not Available Not Available 09/02/2024 15:43:05 07/22/19 25 07/22/2024 Compr ehens lexis metab olic 2000 panel - Serum or Plasm a glomerular filtration rate/1.73 sq M.predicted [volume rate/area] in serum, plasma or blood by creatinine-b ased formula (CKD-epi 2020) text: >90 mL/min /1.73 M2 GFR ESTIM ATE >90 >90 ML/MD N/1.7 3 M2 07/22 2:33 PM CARRIER OPERATOR [facility] Not Available Not Available 09/02/2024 15:43:05 07/22/19 25 07/22/2024 Compr ehens lexis metab olic 2000 panel - Serum or Plasm a interpretati on and review of laboratory results Abnorm al Not Available Not Available 15:43:05 07/22/19 25 07/22/2024 Lipid 1995 panel - Serum or Plasm a cholesterol [mass/volume ] in serum or plasma 226 text: <200.0 mg/dL high CHRISTA STERO L 226 (H) <200. 0 MG/DL 07/22 2:33 PM CARRIER OPERATOR [facility] Not Available Not Available 09/02/2024 15:43:05 07/22/19 25 07/22/2024 Lipid 1995 panel - Serum or Plasm a triglyceride [mass/volume ] in serum or plasma 98 text: <150 mg/dL TRIGL YCERI SABINA 98 <150 MG/DL 07/22 2:33 PM CARRIER OPERATOR [facility] Not Available Not Available 09/02/2024 15:43:05 07/22/19 25 07/22/2024 Lipid 1996 panel - Serum or Plasm a cholesterol in HDL [mass/volume ] in serum or plasma 58 text: >40.0 mg/dL HDL 58 >40.0 MG/DL 07/22 2:33 PM CARRIER OPERATOR [facility] Not Available Not Available 09/02/2024 15:43:05 07/22/19 25 07/22/2024 Lipid 1996 panel - Serum or Plasm a cholesterol in LDL [mass/volume ] in serum or plasma by calculation 148 text: <100 mg/dL high LDL (CALC ULATE D) 148 (H) <100 MG/DL 07/22 2:33 PM CARRIER OPERATOR [facility] Not Available Not Available 09/02/2024 15:43:05 07/22/19 25 07/22/2024 Lipid 1996 panel - Serum or Plasm a cholesterol non HDL [mass/volume ] in serum or plasma 168 text: <130 mg/dL high NON HDL CHRISTA STERO L 168 (H) <130 MG/DL 07/22 2:33 PM CARRIER OPERATOR [facility] Not Available Not Available 09/02/2024 15:43:05 07/22/19 25 07/22/2024 Lipid 1996 panel - Serum or Plasm a cholesterol. total/choles terol in HDL [mass ratio] in serum or plasma 3.9 low: 0high: 4.5 CHOL/ HDL RATIO 3.9 0.0 - 4.5 07/22 2:33 PM CARRIER OPERATOR [facility] Not Available Not Available 09/02/2024 15:43:05 07/22/19 25 07/22/2024 Lipid 1996 panel - Serum or Plasm a cholesterol in VLDL [mass/volume ] in serum or plasma by calculation 20 text: 5 - 55 mg/dL VLDL CALCU LATIO N 20 5 - 55 MG/DL 07/22 2:33 PM CARRIER OPERATOR [facility] Not Available Not Available 09/02/2024 15:43:05 07/22/19 25 07/22/2024 Lipid 1996 panel - Serum or Plasm a service comment LIPID INTER PRETA TION 07/22 2:33 PM CARRIER OPERATOR [facility] Not Available Not Available 09/02/2024 15:43:05 07/22/19 25 07/22/2024 Lipid 1996 panel - Serum or Plasm a interpretati on and review of laboratory results Abnorm al Not Available Not Available 15:43:05 07/22/19 25 07/22/2024 CBC W Auto Diffe renti al panel - Blood leukocytes [#/volume] in blood by automated count 5.33 text: 4.4 - 11.0 x10'3/ uL WBC 5.33 4.4 - 11.0 x10'3 /uL 07/22 2:06 PM CARRIER OPERATOR [facility] Not Available Not Available 09/02/2024 15:43:05 07/22/19 25 07/22/2024 CBC W Auto Diffe renti al panel - Blood erythrocytes [#/volume] in blood by automated count 4.44 text: 4.50 - 5.90 x10'6/ uL low RBC 4.44 (L) 4.50 - 5.90 x10'6 /uL 07/22 2:06 PM CARRIER OPERATOR [facility] Not Available Not Available 09/02/2024 15:43:05 07/22/19 25 07/22/2024 CBC W Auto Diffe renti al panel - Blood hemoglobin [mass/volume ] in blood 11.4 text: 14.0 - 17.5 g/dL low HGB 11.4 (L) 14.0 - 17.5 G/DL 07/22 2:06 PM CARRIER OPERATOR [facility] Not Available Not Available 09/02/2024 15:43:05 07/22/19 25 07/22/2024 CBC W Auto Diffe renti al panel - Blood hematocrit [volume fraction] of blood 35.2 % low: 41.5%h igh: 50.4% low HCT 35.2 (L) 41.5 - 50.4 % 07/22 2:06 PM CARRIER OPERATOR [facility] Not Available Not Available 09/02/2024 15:43:05 07/22/19 25 07/22/2024 CBC W Auto Diffe renti al panel - Blood MCV [entitic volume] 79.3 text: 80.0 - 96.0 fL low MCV 79.3 (L) 80.0 - 96.0 FL 07/22 2:06 PM CARRIER OPERATOR [facility] Not Available Not Available 09/02/2024 15:43:05 07/22/19 25 07/22/2024 CBC W Auto Diffe renti al panel - Blood MCH [entitic mass] 25.7 pg low: 26.5pg high: 31.4pg low MCH 25.7 (L) 26.5 - 31.4 PG 07/22 2:06 PM CARRIER OPERATOR [facility] Not Available Not Available 09/02/2024 15:43:05 07/22/19 25 07/22/2024 CBC W Auto Diffe renti al panel - Blood MCHC [mass/volume ] 32.4 text: 31.9 - 34.8 g/dL MCHC 32.4 31.9 - 34.8 G/DL 07/22 2:06 PM CARRIER OPERATOR [facility] Not Available Not Available 09/02/2024 15:43:05 07/22/19 25 07/22/2024 CBC W Auto Diffe renti al panel - Blood erythrocyte distribution width [entitic volume] by automated count 18.9 % low: 12.3%h igh: 14.3% high RDW 18.9 (H) 12.3 - 14.3 % 07/22 2:06 PM CARRIER OPERATOR [facility] Not Available Not Available 09/02/2024 15:43:05 07/22/19 25 07/22/2024 CBC W Auto Diffe renti al panel - Blood platelets [#/volume] in blood 262 text: 151 - 353 x10'3/ uL PLT 262 151 - 353 x10'3 /uL 07/22 2:06 PM CARRIER OPERATOR [facility] Not Available Not Available 09/02/2024 15:43:05 07/22/19 25 07/22/2024 CBC W Auto Diffe renti al panel - Blood platelet mean volume [entitic volume] in blood 9.3 text: 9.7 - 11.9 fL low MPV 9.3 (L) 9.7 - 11.9 FL 07/22 2:06 PM CARRIER OPERATOR [facility] Not Available Not Available 09/02/2024 15:43:05 07/22/19 25 07/22/2024 CBC W Auto Diffe renti al panel - Blood erythrocytes [morphology] in blood by automated count NORMAL RBC MORPH OLOGY BERNARDO L 07/22 2:06 PM CARRIER OPERATOR [facility] Not Available Not Available 09/02/2024 15:43:05 07/22/19 25 07/22/2024 CBC W Auto Diffe renti al panel - Blood platelet morphology finding [identifier] in blood NORMAL PLT MORPH . BERNARDO L 07/22 2:06 PM CARRIER OPERATOR [facility] Not Available Not Available 09/02/2024 15:43:05 07/22/19 25 07/22/2024 CBC W Auto Diffe renti al panel - Blood leukocyte morphology finding [identifier] in blood NORMAL WBC MORPH OLOGY BERNARDO L 07/22 2:06 PM CARRIER OPERATOR [facility] Not Available Not Available 09/02/2024 15:43:05 07/22/19 25 07/22/2024 CBC W Auto Diffe renti al panel - Blood lymphocytes/ 100 leukocytes in blood by automated count 23.6 % low: 15.8%h igh: 45% LYMPH OCYTE S % 23.6 15.8 - 45.0 % 07/22 2:06 PM CARRIER OPERATOR [facility] Not Available Not Available 09/02/2024 15:43:05 07/22/19 25 07/22/2024 CBC W Auto Diffe renti al panel - Blood neutrophils/ 100 leukocytes in blood by automated count 57.4 % low: 42.1%h igh: 71.9% NEUTR OPHIL S % 57.4 42.1 - 71.9 % 07/22 2:06 PM CARRIER OPERATOR [facility] Not Available Not Available 09/02/2024 15:43:05 07/22/19 25 07/22/2024 CBC W Auto Diffe renti al panel - Blood monocytes/10 0 leukocytes in blood by automated count 13.5 % low: 5.7%hi gh: 12.5% high MONOC YTES % 13.5 (H) 5.7 - 12.5 % 07/22 2:06 PM CARRIER OPERATOR [facility] () [facility] Not Available Not Available 09/02/2024 15:43:05 07/22/19 25 07/22/2024 CBC W Auto Diffe renti al panel - Blood eosinophils/ 100 leukocytes in blood by automated count 4.7 % low: 0%high : 5.6% EOSIN OPHIL S 4.7 0.0 - 5.6 % 07/22 2:06 PM [facility] () [facility] Not Available Not Available 09/02/2024 15:43:05 07/22/19 25 07/22/2024 CBC W Auto Diffe renti al panel - Blood basophils/10 0 leukocytes in blood by automated count 0.4 % low: 0%high : 1.3% BASOP HILS 0.4 0.0 - 1.3 % 07/22 2:06 PM [facility] () [facility] Not Available Not Available 09/02/2024 15:43:05 07/22/19 25 07/22/2024 CBC W Auto Diffe renti al panel - Blood neutrophils [#/volume] in blood 3.06 text: 1.40 - 6.00 x10'3/ uL ABS. 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 [facility] () [facility] Not Available Not Available 09/02/2024 15:43:05 07/22/19 25 07/22/2024 CBC W Auto Diffe renti al panel - Blood immature granulocytes /100 leukocytes in blood by automated count 0.4 % low: 0%high : 0.5% IMMAT URE GRANS % 0.4 0.0 - 0.5 % 07/22 2:06 PM CARRIER OPERATOR [facility] () [facility] Not Available Not Available 09/02/2024 15:43:05 07/22/19 25 07/22/2024 CBC W Auto Diffe renti al panel - Blood lymphocytes [#/volume] in blood 1.26 text: 0.80 - 4.70 x10'3/ uL ABS. LYMPH OCYTE S 1.26 0.80 - 4.70 x10'3 /uL 07/22 2:06 PM CARRIER OPERATOR [facility] () [facility] Not Available Not Available 09/02/2024 15:43:05 07/22/19 25

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
--- OUTSIDE RECORDS SUMMARY | 2024-09-08 10:12 | XMS_ITS | Referral Summary ---
Author Organization [facility] Address [address] [place] [address] Care Team Providers Care Meal Room Hand Name Role Phone Dena James Chad BEATTY-TEST PREPARATION TUTOR Primary Care Provider Source Comments [facility],non-owned Affiliates and Associated Physician Practices is amultiple site organization consisting of ambulatory clinics and hospital sitesin [place], [place] and [place]. This disclosure is being madepursuant to the Care Everywhere program and may not contain all information available regarding this patient. Last updated 18.[facility] Allergies Active Allergy Reactions Criticality Noted Date [...] Mass Index 16.18 10/24/2022 3:25 PM CDT Functional Status Functional Status Response Date of Assess ment Is person deaf or have serious hearing difficult y? No 10/22/2020 Is person blind or have serious difficulty seein g? No 10/22/2020 Does person have serious dif ficulty walking/climbing stairs? Yes 10/22/2020 Does person have difficulty dressing/bathing? Ye s 10/22/2020 Does person have difficulty doing errands alone? Yes 10/22/2020 Cognitive Status Response Date of Assessm ent Does person have difficulty concentrating/remembering/making decisions? 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
[2024-09-08 11:12] VITALS: BP 146/80
--- NOTE | 2024-09-08 11:14 | ED_ITS ---
HPI - Male Genitourinary General Chief complaint: Urogenital-Male <Caron Willingham PA-C - Last Filed: 09/08/24 13:01> Stated complaint: needs polo cath changed <DIEGO Enrique Last Filed: 09/08/24 13:01> Time Seen by Provider: 09/08/24 10:58 <DIEGO Enrique Last Filed: 09/08/24 13:01> Source: patient <DIEGO Enrique Last Filed: 09/08/24 13:01> Mode of arrival: wheelchair <DIEGO Enrique Last Filed: 09/08/24 13:01> Limitations: no limitations <DIEGO Enrique Last Filed: 09/08/24 13:01> History of Present Illness HPI Narrative: This is a 53 year old male that presents to the ER for suprapubic catheter exchange. Reports he had it exchanged about 1 month ago. He is trying to get home health set up to have this done in the future. 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 <DIEGO Enrique Last Filed: 09/08/24 13:01> Related Data Allergies/Adverse reactions: Allergies Allergy/AdvReac Type Severity Reaction Status Date / Time ciprofloxacin (From Cipro) Allergy Unknown Unknown Verified 09/08/24 12:09 diazepam (From Valium) Allergy Unknown unkown Verified 09/08/24 12:09 diphenhydramine (From Allergy Unknown unknown Verified 09/08/24 12:09 Benadryl) pink zinc Allergy Unknown unkown Uncoded 09/08/24 12:09 <DIEGO Enrique Last Filed: 09/08/24 13:01> Review of Systems Review of Systems: CONSTITUTIONAL: Denies fever GASTROINTESTINAL: Denies abdominal pain, nausea, vomiting GENITOURINARY: Denies hematuria. <DIEGO Enrique Last Filed: 09/08/24 13:01> All systems reviewed & are unremarkable except as noted in HPI and below <DIEGO Enrique Last Filed: 09/08/24 13:01> [facility] Past Medical History Medical History: Medical History (Updated 09/08/24 @ 11:17 by Caron Willingham PA-C) History of paraplegia <Caron Willingham PA-C - Last Filed: 09/08/24 13:01> Surgical History Surgical History: Surgical History (Updated 09/08/24 @ 12:55 by Caron Willingham PA-C) History of suprapubic catheter <Caron Willingham PA-C - Last Filed: 09/08/24 13:01> Exam Narrative: GENERAL: Well-appearing, well-nourished, and in no acute distress. HEAD: Normocephalic, atraumatic. EYES: EOMI. CHEST: Clear to auscultation. No respiratory distress. No wheezes rales or rhonchi HEART: Regular rate and rhythm. No murmur heard. Normal peripheral pulses. ABDOMEN: Soft, nontender, nondistended, normal active bowel sounds. Suprapubic catheter in place without abnormal drainage or surrounding erythema. Colostomy present EXTREMITIES: Normal range of motion. No edema. SKIN: Warm, dry, no rash. NEURO: No focal deficits. Alert and oriented x3. PSYCH: Normal mood and affect <Caron Willingham PA-C - Last Filed: 09/08/24 13:01> Course Vital Signs Vital signs: Vital Signs Temperature 36.6 C 09/08/24 10:05 Pulse Rate 70 09/08/24 10:05 Respiratory Rate 16 09/08/24 10:05 Blood Pressure 146/80 H 09/08/24 10:05 Pulse Oximetry 100 09/08/24 10:05 Oxygen Delivery Room Air 09/08/24 10:05 Temperature 36.6 C 09/08/24 10:05 Pulse Rate 70 09/08/24 10:05 Respiratory Rate 16 09/08/24 10:05 Blood Pressure 146/80 H 09/08/24 11:12 Pulse Oximetry 100 09/08/24 10:05 Oxygen Delivery Room Air 09/08/24 10:05 <Caron Willingham PA-C - Last Filed: 09/08/24 13:01> Vital Signs Temperature 36.6 C 09/08/24 10:05 Pulse Rate 70 09/08/24 10:05 Respiratory Rate 16 09/08/24 10:05 Blood Pressure 146/80 H 09/08/24 10:05 Pulse Oximetry 100 09/08/24 10:05 Oxygen Delivery Room Air 09/08/24 10:05 Temperature 36.6 C 09/08/24 10:05 Pulse Rate 70 09/08/24 10:05 Respiratory Rate 16 09/08/24 10:05 Blood Pressure 146/80 H 09/08/24 11:12 Pulse Oximetry 100 09/08/24 10:05 Oxygen Delivery Room Air 09/08/24 10:05 <Dimitri Hunter MD - Last Filed: 09/08/24 13:00> Procedures Catheter Insertion (Urinary) Urinary Catheter 1: Date of insertion: 09/08/24 <Dimitri Hunter MD - Last Filed: 09/08/24 13:00> Time of insertion: 12:57 <Dimitri Hunter MD - Last Filed: 09/08/24 13:00> Reason for placing indwelling catheter: Other (Last replacement was 1 month ago, today is the time for new catheter placement) <Dimitri Hunter MD - Last Filed: 09/08/24 13:00> Patient has the following: history of catheter associated urinary tract infection <Dimitri Hunter MD - Last Filed: 09/08/24 13:00> Estimated amount of urine (mLs): 2,000 <Dimitri Hunter MD - Last Filed: 09/08/24 13:00> Topical anesthesia used: No <Dimitri Hunter MD - Last Filed: 09/08/24 13:00> Catheter type/location: Suprapubic <Dimitri Hunter MD - Last Filed: 09/08/24 13:00> Size (Pashto): 24 <Dimitri Hunter MD - Last Filed: 09/08/24 13:00> Catheter balloon size (mL): 10 <Dimitri Hunter MD - Last Filed: 09/08/24 13:00> Catheter balloon amount: 10 <Dimitri Hunter MD - Last Filed: 09/08/24 13:00> Results: successfully catheterized-immediate flow <Dimitri Hunter MD - Last Filed: 09/08/24 13:00> Procedure performed: without complications <Dimitri Hunter MD - Last Filed: 09/08/24 13:00> Complications: none <Dimitri Hunter MD - Last Filed: 09/08/24 13:00> MDM - Male Genitourinary MDM Narrative Medical decision making narrative: Patient presents to the emergency department for replacement of suprapubic catheter. He has no complaints otherwise. He is afebrile and nontoxic appearing. This was replaced without complications by Dr. Hunter. Draining yellow urine. Instructed to follow-up with his urologist. He was given warnings to return to the ER <Caron Willingham PA-C - Last Filed: 09/08/24 13:01> Critical Care Time Critical Care Time Critical Care Time: No <Caron Willingham PA-C - Last Filed: 09/08/24 13:01> Discharge Plan Discharge Clinical Impression: Chronic suprapubic catheter <Caron Willingham PA-C - Last Filed: 09/08/24 13:01> Patient Disposition: Home, Self-Care <Caron Willingham PA-C - Last Filed: 09/08/24 13:01> Condition: Stable <Caron Willingham PA-C - Last Filed: 09/08/24 13:01> Instructions: How to Care for Your Suprapubic Catheter (DC) <Caron Willingham PA-C - Last Filed: 09/08/24 13:01> Additional Instructions: Return to the ER if you experience fever, abdominal pain with nausea and vomiting, you are unable to keep down liquids or solids, blood in the urine or any other symptoms that are concerning to you Follow up with your urologist <Caron Willingham PA-C - Last Filed: 09/08/24 13:01> Patient Language: Danish <Caron Willingham PA-C - Last Filed: 09/08/24 13:01> Follow-up/Referrals: PHYSICIAN NOT ON STAFF,NONSTAFF [Non-Staff] - <Caron Willingham PA-C - Last Filed: 09/08/24 13:01>
--- OUTSIDE RECORDS SUMMARY | 2024-09-08 11:30 | XMS_ITS | Clinical Summary ---
Author Organization [facility] Address [address] [facility] [place] [address] Care Team Providers Care Rough Rice Grader Name Role Phone Dena James ROGERIO-AIR BAG STRIPPER Primary Care Provider Source Comments [facility],non-owned Affiliates and Associated Physician Practices is amultiple site organization consisting of ambulatory clinics and hospital sitesin [place], [place], [place] and [place]. This disclosure is being madepursuant to the Care Everywhere program and may not contain all information available regarding this patient. Last updated 18.[facility] [employer] Allergies Active Allergy Reactions Criticality Noted Date [...] 4:22 AM 10/22/2020 2:34 PM Care Teams Rough Rice Grader Relationship Specialty Start Date End Date Dena James, TRANSIT MIXER DRIVER-AIR BAG STRIPPER [address] [place] [address] PCP - General Clay Maker 08/02/22
--- OUTSIDE RECORDS SUMMARY | 2024-09-08 11:30 | XMS_ITS | Patient Health Summary ---
Author Organization [facility] Address [address] [place] [address] Care Team Providers Care Bombsight Specialist Name Role Phone Dena James SENIOR APPLICATION SOFTWARE ENGINEER-LIAISON PLANNER Primary Care Provider Note from [facility],non-owned Affiliates and Associated Physician Practices is amultiple site organization consisting of ambulatory clinics and hospital sitesin [place], [place], [place] and [place]. This disclosure is being madepursuant to the Care Everywhere program and may not contain all information available regarding this patient. Last updated 18.[facility] Allergies * Diphenhydramine(Unknown) * Ciprofloxacin(Itching) * Diazepam(Unknown) [...] Yellow, Dark Yellow 10/24/2022 4:00 PM CDT [facility] Clarity UA Slt Cloudy(A) Clear 10/24/2022 4:00 PM CDT [facility] Glucose UA Negative Negative 10/24/2022 4:00 PM CDT [facility] Bilirubin UA Negative Negative 10/24/2022 4:00 PM CDT [facility] Ketone UA 1+(A) Negative 10/24/2022 4:00 PM CDT [facility] Specific [place] UA 1.014 1.005 - 1.030 10/24/2022 4:00 PM CDT [facility] Blood UA 2+(A) Negative 10/24/2022 4:00 PM CDT [facility] pH UA 6.0 5.0 - 8.0 pH 10/24/2022 4:00 PM CDT [facility] Protein UA 2+(A) Negative 10/24/2022 4:00 PM CDT [facility] Urobilinogen UA Negative Negative mg/dL 10/24/2022 4:00 PM CDT [facility] Nitrite UA Positive(A) Negative 10/24/2022 4:00 PM CDT [facility] Leukocyte UA 3+(A) Negative 10/24/2022 4:00 PM CDT [facility] Urine Microscopy Urine microscopy to follow 10/24/2022 4:00 PM CDT [facility] Urine URINE SPECIMEN COLLECTION, CATHETERIZED / Unknown Collection / Unknown 10/24/2022 3:36 PM CDT 10/24/2022 3:42 PM CDT Narrative [facility] - 10/24/2022 4:00 PM CDT Ascorbic Acid can cause false negative urine strip tests for blood, glucose, nitrite, and bilirubin. Mayra Neil APRN-LIAISON PLANNER LAB - URINALYSIS ORD ERABLES Performing Organization Address [facility]/ZIP Co de Phone Number [facility] [address] * (ABNORMAL) URINE MICROSCOPIC ONLY (10/24/2022 3:36 PM CDT) Pathologist [facility] RBC UA 11-20(A) 0 - 5 # /hpf 10/24/2022 4:00 PM CDT [facility] WBC UA 21-50(A) None Seen, 0-5 # /hpf 10/24/2022 4:00 PM CDT [facility] Budding Yeast Occasional (A) None seen /hpf 10/24/2022 4:00 PM CDT [facility] Hyaline Casts 0-2 None Seen, 0-2 /LPF 10/24/2022 4:00 PM CDT [facility] Bacteria UA 2+(A) None Seen 10/24/2022 4:00 PM CDT [facility] Squamous Epithelial Cells None Seen None Seen, 0-2, 3-5 /hpf 10/24/2022 4:00 PM CDT [facility] Mucus UA 1+ /LPF 10/24/2022 4:00 PM CDT [facility] Urine URINE SPECIMEN COLLECTION, CATHETERIZED / Unknown Collection / Unknown 10/24/2022 3:36 PM CDT 10/24/2022 3:42 PM CDT Narrative [facility] - 10/24/2022 4:00 PM CDT Mayra Neil SENIOR APPLICATION SOFTWARE ENGINEER-LIAISON PLANNER LAB - URINALYSIS ORD ERABLES Performing Organization Address [facility] Co de Phone Number [facility] [address] * CULTURE URINE (10/24/2022 3:36 PM CDT) Only the most recent of5 resultswithin the time period is included. Pathologist [facility] Culture Urine More than 2 organisms seen at >=50,000 CFU/mL. Recollect if clinically indicated. YINA 10/26/2022 3:09 PM CDT [facility] Urine URINE SPECIMEN OBTAINED BY CLEAN CATCH PROCEDURE / Unknown Collection / Unknown 10/24/2022 3:36 PM CDT 10/24/2022 3:42 PM CDT Narrative [facility] - 10/26/2022 3:09 PM CDT Mayra MEJIA LAB - MICROBIOLOGY O RDERABLES [facility] [address] [place] [address], [facility] [phone] * (ABNORMAL) URINE MICROSCOPIC ONLY REFLEX TO CULTURE (08/02/2022 6:55 PM PHOTOGRAPHY PROFESSOR) Only the most recent of4 resultswithin the time period is included. Reflex Status Culture to follow 08/02/2022 7:11 PM PHOTOGRAPHY PROFESSOR [facility] RBC UA 11-20(A) 0 - 5 # /hpf 08/02/2022 7:11 PM [facility] WBC UA >100(A) None Seen, 0-5 # /hpf 08/02/2022 7:11 PM [facility] WBC Clumps UA Few(A) None Seen /HPF 08/02/2022 7:11 PM [facility] Bacteria UA 3+(A) None Seen 08/02/2022 7:11 PM [facility] Squamous Epithelial Cells 0-2 None Seen, 0-2, 3-5 /hpf 08/02/2022 7:11 PM [facility] Mucus UA 1+ /LPF 08/02/2022 7:11 PM [facility] Urine SUPRAPUBIC URINE SPECIMEN / Unknown Collection / Unknown 08/02/2022 6:55 PM PHOTOGRAPHY PROFESSOR 08/02/2022 7:02 PM PHOTOGRAPHY PROFESSOR Narrative [facility] - 08/02/2022 7:11 PM PHOTOGRAPHY PROFESSOR Ilan Jiang DO LAB - URINALYSIS ORD ERABLES [facility] [address] [place], [place] [id number] [place] [address] * (ABNORMAL) URINALYSIS REFLEX MICROSCOPIC REFLEX CULTURE (08/02/2022 6:55 PM PHOTOGRAPHY PROFESSOR) Only the most recent of4 resultswithin the time period is included. Color UA Yellow Straw, Yellow, Dark Yellow 08/02/2022 7:11 PM [facility] Clarity UA Cloudy(A) Clear 08/02/2022 7:11 PM PHOTOGRAPHY PROFESSOR [facility] Glucose UA Negative Negative 08/02/2022 7:11 PM [facility] Bilirubin UA Negative Negative 08/02/2022 7:11 PM [facility] Ketone UA Trace(A) Negative 08/02/2022 7:11 PM [facility] Specific [place] UA 1.014 1.005 - 1.030 08/02/2022 7:11 PM [facility] Blood UA 1+(A) Negative 08/02/2022 7:11 PM [facility] pH UA 6.0 5.0 - 8.0 pH 08/02/2022 7:11 PM [facility] Protein UA 2+(A) Negative 08/02/2022 7:11 PM [facility] Urobilinogen UA Negative Negative mg/dL 08/02/2022 7:11 PM [facility] Nitrite UA Negative Negative 08/02/2022 7:11 PM [facility] Leukocyte UA 3+(A) Negative 08/02/2022 7:11 PM [facility] Urine Microscopy Urine microscopy to follow 08/02/2022 7:11 PM [facility] Urine SUPRAPUBIC URINE SPECIMEN / Unknown Collection / Unknown 08/02/2022 6:55 PM PHOTOGRAPHY PROFESSOR 08/02/2022 7:02 PM [facility] Narrative [facility] - 08/02/2022 7:11 PM [facility] Ascorbic Acid can cause false negative urine strip tests for blood, glucose, nitrite, and bilirubin. Ilan Jiang DO LAB - URINALYSIS ORD ERABLES Performing Organization Address City/State/[facility] Co de Phone Number [facility] [address] * CT ABDOMEN AND PELVIS W [place] CONTRAST [id number] (06/19/2021 12:00 PM PHOTOGRAPHY PROFESSOR) Anatomical Region Laterality Modality Abdomen, Pelvis Computed Tomogra phy 06/19/2021 12:3 7 PM PHOTOGRAPHY PROFESSOR Addenda Addendum by Jessica Sanchez MD on 06/19/2021 12:56 PM PHOTOGRAPHY PROFESSOR Addendum should read as follows. Please disregard sentence pulmonary embolus. Instead it should read unremarkable adrenal glands. *Addending Radiologist: Jessica Sanchez on 06/19/2021 at 12:53 PM Impressions 06/19/2021 12:39 PM PHOTOGRAPHY PROFESSOR As described above *Reading Radiologist: Jessica Sanchez on 06/19/2021 at 12:39 PM Narrative 06/19/2021 12:39 PM PHOTOGRAPHY PROFESSOR PROCEDURE: CT ABDOMEN PELVIS W CONTRAST 06/19/2021 [...] (ABNORMAL) CULTURE WOUND+GRAM STAIN (06/19/2021 10:41 AM PHOTOGRAPHY PROFESSOR) Culture Heavy Pseudomonas aeruginosa(A) YINA 06/22/2021 11:11 PM PHOTOGRAPHY PROFESSOR [facility] Culture Heavy Pseudomonas aeruginosa(A) YINA 06/22/2021 11:11 PM [facility] Comment:Strain 2 Culture Heavy Klebsiella pneumoniae(A) YINA 06/22/2021 11:[address] [facility] Culture Heavy Corynebacterium species(A) YINA 06/22/2021 11:11 PM [facility] Culture Moderate Staphylococcus aureus methicillin-resista nt (MRSA)(A) YINA 06/22/2021 11:11 PM [facility] Comment:Staphylococcus aureu s methicillin-resistant (MRSA) detected by penicillin binding protein immunoassay. Contact precautions required. Conventional antibiotic susceptibility testing to follow. Gram Stain Moderate Polymorphonuclear cells 06/22/2021 11:11 PM [facility] Gram Stain Light Red blood cells 06/22/2021 11:11 PM [facility] Gram Stain Light Squamous epithelial cells 06/22/2021 11:11 PM [facility] Gram Stain Heavy Gram-positive bacilli 06/22/2021 11:11 PM [facility] Gram Stain Light Gram-positive cocci 06/22/2021 11:11 PM [facility] Microbiology ASSESSMENT OF CATHETER ENTRY SITE / Unknown Collection / Unknown 06/19/2021 10:41 AM PHOTOGRAPHY PROFESSOR 06/19/2021 10:[address] [facility] MICROBIOLOGY - 06/22/2021 11:11 PM [facility] Methicillin-resistant Staphylococci (MRSA) are resistant to all [...] please call microbiology lab to request manual [phone]. Staphylococcus aureus methicillin-resistant (MRSA) Clindamycin YINA 0.25 [...] Espinoza MD LAB - MICROBIOLOGY O RDERABLES [facility] [address] [place], [place] [address] [phone] * CULTURE BLOOD (06/19/2021 10:36 AM PHOTOGRAPHY PROFESSOR) Only the most recent of4 resultswithin the time period is included. Culture No growth day 5 YINA 06/25/2021 12:00 AM PHOTOGRAPHY PROFESSOR [facility] Blood PERIPHERAL BLOOD / Unknown Venipuncture / Unknown 06/19/2021 10:36 AM PHOTOGRAPHY PROFESSOR 06/19/2021 10:46 AM PHOTOGRAPHY PROFESSOR Kim Espinoza MD LAB - MICROBIOLOGY O RDERABLES [facility]CRO[facility] [address] [place] [address], [facility] [phone] * LACTIC ACID BLOOD REFLEX TO REPEAT (06/19/2021 10:31 AM PHOTOGRAPHY PROFESSOR) Only the most recent of2 resultswithin the time period is included. Lactic Acid 1.76 0.5 - 2 mmol/L 06/19/2021 11:05 AM PHOTOGRAPHY PROFESSOR [facility] Comment:3+ hemolysis Blood BLOOD SPECIMEN / Unknown Venipuncture / Unknown 06/19/2021 10:31 AM PHOTOGRAPHY PROFESSOR 06/19/2021 10:46 AM PHOTOGRAPHY PROFESSOR Kim Espinoza MD LAB [facility] [address] * PROCALCITONIN LEVEL (06/19/2021 10:31 AM PHOTOGRAPHY PROFESSOR) Procalcitonin 0.07 <=0.10 ng/mL 06/19/2021 11:32 AM PHOTOGRAPHY PROFESSOR [facility] Comment:2+ hemolysis Blood BLOOD SPECIMEN / Unknown Venipuncture / Unknown 06/19/2021 10:31 AM PHOTOGRAPHY PROFESSOR 06/19/2021 10:46 AM PHOTOGRAPHY PROFESSOR Narrative [facility] - 06/19/2021 11:32 AM PHOTOGRAPHY PROFESSOR If baseline PCT is - >2.0 ng/mL: [...] Change in Procalcitonin Calculator is available at [email or web address] If clinical picture has not improved and PCT remains high, reevaluate and consider treatment failure or other causes. Kim Espinoza MD LAB - CHEMISTRY KEIRY DUEÑAS [facility] Organization Address City/State/ZIP Co de Phone Number [facility] [address] * (ABNORMAL) CBC W AUTO DIFFERENTIAL (06/19/2021 10:31 AM PHOTOGRAPHY PROFESSOR) Only the most recent of4 resultswithin the time period is included. [facility] Signature WBC 7.4 4.0 - 10.0 x10E9/L 06/19/2021 10:50 AM [facility] RBC 3.70(L) 4.40 - 6.10 x10E12/L 06/19/2021 10:50 AM [facility] Hemoglobin 9.6(L) 13.7 - 17.5 gm/dL 06/19/2021 10:50 AM [facility] Hematocrit 29.3(L) 40.1 - 51.0 % 06/19/2021 10:50 AM [facility] MCV 79.2 78.0 - 100.0 fl 06/19/2021 10:50 AM [facility] MCH 25.9 25.6 - 34.0 pg 06/19/2021 10:50 AM [facility] MCHC 32.8 32.3 - 36.5 gm/dL 06/19/2021 10:50 AM [facility] RDW 17.7(H) 11.6 - 14.4 % 06/19/2021 10:50 AM [facility] MPV 9.8 9.4 - 12.4 fl 06/19/2021 10:50 AM [facility] Platelet Count 396(H) 163 - 369 x10E9/L 06/19/2021 10:50 AM [facility] Neutrophils % 66.6 40.0 - 75.0 % 06/19/2021 10:50 AM [facility] Lymphocytes % 14.5(L) 19.3 - 53.1 % 06/19/2021 10:50 AM [facility] Monocytes % 16.5(H) 4.7 - 12.5 % 06/19/2021 10:50 AM [facility] Eosinophils % 1.8 0.7 - 7.0 % 06/19/2021 10:50 AM [facility] Basophils % 0.3 0.1 - 1.2 % 06/19/2021 10:50 AM [facility] Immature Granulocytes 0.3 0 - 0.5 % 06/19/2021 10:50 AM [facility] Neutrophil Absolute 4.94 1.56 - 6.13 x10E9/L 06/19/2021 10:50 AM [facility] Lymphocytes Absolute 1.07(L) 1.18 - 3.74 x10E9/L 06/19/2021 10:50 AM [facility] Monocytes Absolute 1.22(H) 0.24 - 0.86 x10E9/L 06/19/2021 10:50 AM [facility] Eosinophils Absolute 0.13 0.04 - 0.54 x10E9/L 06/19/2021 10:50 AM [facility] Basophils Absolute 0.02 0.01 - 0.08 x10E9/L 06/19/2021 10:50 AM [facility] Immature Granulocytes Absolute 0.02 0 - 0.03 x10E9/L 06/19/2021 10:50 AM [facility] nRBC Auto 0 <=0 /100 WBC 06/19/2021 10:50 AM [facility] nRBC Absolute 0.00 <=0 x10E9/L 06/19/2021 10:50 AM [facility] Blood BLOOD SPECIMEN / Unknown Venipuncture / Unknown 06/19/2021 10:31 AM PHOTOGRAPHY PROFESSOR 06/19/2021 10:46 AM [facility] Kim Espinoza MD LAB - HEMATOLOGY ORD ERABLES Performing Organization Address City/State/[facility] Co de Phone Number [facility] [address] * (ABNORMAL) COMPREHENSIVE METABOLIC PANEL (06/19/2021 10:31 AM [facility]) Only the most recent of3 resultswithin the time period is included. [facility] Signature Glucose 100 70 - 125 mg/dL 06/19/2021 11:13 AM [facility] Sodium 138 136 - 145 mmol/L 06/19/2021 11:13 AM [facility] Potassium 4.0 3.4 - 4.5 mmol/L 06/19/2021 11:13 AM [facility] Comment:2+ hemolysis Chloride 104 98 - 107 mmol/L 06/19/2021 11:13 AM [facility] CO2 23 22 - 29 mmol/L 06/19/2021 11:13 AM [facility] Calcium 9.3 8.4 - 10.2 mg/dL 06/19/2021 11:13 AM [facility] Anion Gap 15 10 - 20 mmol/L 06/19/2021 11:13 AM [facility] BUN 13.1 8.4 - 25.7 mg/dL 06/19/2021 11:13 AM [facility] Creatinine 0.70(L) 0.72 - 1.25 mg/dL 06/19/2021 11:13 AM [facility] eGFR by MDRD >60 >60 mL/min/1.7 3m2 06/19/2021 11:13 AM [facility] eGFR by MDRD >60 >60 mL/min/1.7 3m2 06/19/2021 11:13 AM [facility] Alkaline Phosphatase 107 40 - 150 U/L 06/19/2021 11:13 AM [facility] ALT 14 5 - 55 U/L 06/19/2021 11:13 AM [facility] AST 27 5 - 34 U/L 06/19/2021 11:13 AM [facility] Protein Total 8.5(H) 6.4 - 8.3 gm/dL 06/19/2021 11:13 AM [facility] Albumin 2.1(L) 3.5 - 5.0 gm/dL 06/19/2021 11:13 AM [facility] Globulin Total 6.4(H) 2.6 - 4.0 gm/dL 06/19/2021 11:13 AM [facility] Albumin/Globulin Ratio 0.3(L) 0.9 - 1.6 06/19/2021 11:13 AM [facility] Bilirubin Total 0.2 0.2 - 1.2 mg/dL 06/19/2021 11:13 AM [facility] Blood BLOOD SPECIMEN / Unknown Venipuncture / Unknown 06/19/2021 10:31 AM PHOTOGRAPHY PROFESSOR 06/19/2021 10:46 AM [facility] Kim Espinoza MD LAB - CHEMISTRY GUSTAVOE LEANA [facility] Organization Address City/State/[facility] Co de Phone Number [facility] [address] * Critical Care (06/19/2021 9:57 AM PHOTOGRAPHY PROFESSOR) Narrative Kim Espinoza MD - 06/19/2021 9:57 AM PHOTOGRAPHY PROFESSOR Kim Espinoza MD 06/19/2021 1:09 PM Critical [...] (Bezet) 418 ms SMC MUSE Calculated P Hughson 49 degrees SMC MUSE Calculated R Hughson 68 degrees [facility] MUSE Calculated T Hughson 47 degrees [facility] MUSE Interpretation EKG NORMAL SINUS RHYTHM NONSPECIFIC T WAVE ABNORMALITY ABNORMAL ECG CONFIRMED BY DR PAGAN ON 03/15/2021 Confirmed by JUSTIN PAGAN MD ([id number]), design editor IRIS MANE ([id number]) on 03/23/2021 9:25:42 AM [facility] MUSE 03/15/2021 8:39 AM CDT 03/23/2021 9:25 AM CDT Zamzam Morales MD ECG ORDERABLES [facility] MUSE * (ABNORMAL) SLIDE SCAN HEMATOLOGY (10/22/2020 10:33 AM CDT) [facility] Platelet Estimation Increased( A) Normal, Adequate platelets 10/22/2020 12:14 PM CDT [facility] WBC Morph Normal 10/22/2020 12:14 PM CDT [facility] Anisocytosis 2+(A) None 10/22/2020 12:14 PM CDT [facility] Hypochromia 2+(A) None 10/22/2020 12:14 PM CDT [facility] Large Platelets 1+(A) None 12:14 PM CDT [facility] Blood BLOOD SPECIMEN / Unknown Lab Venipuncture / Unknown 10/22/2020 10:33 AM CDT 10/22/2020 10:36 AM CDT Bret Soto MD LAB - HEMATOLOG Y ORDERABLES Performing Organization Address City/[facility] de Phone Number [facility] [address] * BASIC METABOLIC PANEL (CALCIUM TOTAL) (10/22/2020 10:33 AM CDT) [facility] Glucose 87 70 - 125 mg/dL 10/22/2020 10:57 AM CDT [facility] Sodium 139 136 - 145 mmol/L 10/22/2020 10:57 AM CDT [facility] Potassium 3.6 3.4 - 4.5 mmol/L 10/22/2020 10:57 AM CDT [facility] Chloride 106 98 - 107 mmol/L 10/22/2020 10:57 AM CDT [facility] CO2 23 22 - 29 mmol/L 10/22/2020 10:57 AM CDT [facility] Calcium 8.5 8.4 - 10.2 mg/dL 10/22/2020 10:57 AM CDT [facility] Anion Gap 14 10 - 20 mmol/L 10/22/2020 10:57 AM CDT [facility] BUN 9.5 8.4 - 25.7 mg/dL 10/22/2020 10:57 AM CDT [facility] Creatinine 0.79 0.72 - 1.25 mg/dL 10/22/2020 10:57 AM CDT [facility] eGFR by MDRD >60 >60 mL/min/1.7 3m2 10/22/2020 10:57 AM CDT [facility] eGFR by MDRD >60 >60 mL/min/1.7 3m2 10/22/2020 10:57 AM CDT [facility] Blood BLOOD SPECIMEN / Unknown Lab Venipuncture / Unknown 10/22/2020 10:33 AM CDT 10/22/2020 10:36 AM CDT Bret Soto MD LAB - CHEMISTRY ORDERABLES Performing Organization Address [facility] Co de Phone Number [facility] [address] * (ABNORMAL) PLATELET COUNT AUTO (10/22/2020 3:21 AM CDT) Platelet Count 568(H) 163 - 369 x10E9/L 10/22/2020 3:53 AM CDT [facility] Blood BLOOD SPECIMEN / Unknown Lab Venipuncture / Unknown 10/22/2020 3:21 AM CDT 10/22/2020 3:49 AM CDT Amadeo Prescott MD LAB - HEMATOLOGY ORD ERABLES Performing Organization Address [facility] Co de Phone Number [facility] [address] [place] [address] * CREATININE BLOOD (10/22/2020 3:21 AM CDT) Creatinine 0.73 0.72 - 1.25 mg/dL 10/22/2020 4:12 AM CDT [facility] eGFR by MDRD >60 >60 mL/min/1.7 3m2 10/22/2020 4:12 AM CDT [facility] eGFR by MDRD >60 >60 mL/min/1.7 3m2 10/22/2020 4:12 AM CDT [facility] Blood BLOOD SPECIMEN / Unknown Lab Venipuncture / Unknown 10/22/2020 3:21 AM CDT 10/22/2020 3:49 AM CDT Amadeo Prescott MD LAB - CHEMISTRY ORDE LEANA Performing Organization Address [facility] de Phone Number [facility] [address] * (ABNORMAL) IRON + TRANSFERRIN PANEL (10/22/2020 3:21 AM CDT) [facility] Signature Iron 24(L) 65 - 175 ug/dL 10/22/2020 4:12 AM CDT [facility] Transferrin 109(L) 174 - 364 mg/dL 10/22/2020 4:12 AM CDT [facility] TIBC Calculated 136(L) 261 - 497 ug/dL 10/22/2020 4:12 AM CDT [facility] Iron Saturation % 18 11 - 45 % 10/22/2020 4:12 AM CDT [facility] Blood BLOOD SPECIMEN / Unknown Lab Venipuncture / Unknown 10/22/2020 3:21 AM CDT 10/22/2020 3:49 AM CDT Amadeo Prescott MD LAB - CHEMISTRY KEIRY DUEÑAS Performing Organization Address [facility] de Phone Number [facility] [address] * XR CHEST 1VW PORTABLE (10/21/2020 [...] seen. IMPRESSION No acute pathology or change Mroeno E Long DO DIAGNOSTIC IMAGING O RDERABLES * (ABNORMAL) DIFFERENTIAL MANUAL (10/20/2020 8:59 PM CDT) WBC Auto 9.7 4.0 - 10.0 x10E9/L 10/20/2020 9:54 PM CDT [facility] Neutrophils % Manual 69 40 - 75 % 10/20/2020 9:54 PM CDT [facility] Lymphocytes % Manual 14(L) 19 - 53 % 10/20/2020 9:54 PM CDT [facility] Monocytes % Manual 14(H) 5 - 13 % 10/20/2020 9:54 PM CDT [facility] Eosinophils % Manual 3 1 - 7 % 10/20/2020 9:54 PM CDT [facility] Neutrophils Absolute Manual 6.7(H) 1.6 - 6.1 x10E3/uL 10/20/2020 9:54 PM CDT [facility] Lymphocytes Absolute Manual 1.4 1.2 - 3.7 x10E3/uL 10/20/2020 9:54 PM CDT [facility] Monocytes Absolute Manual 1.4(H) 0.2 - 0.9 x10E3/uL 10/20/2020 9:54 PM CDT [facility] Eosinophils Absolute Manual 0.3 0.0 - 0.5 x10E3/uL 10/20/2020 9:54 PM CDT [facility] Cells Counted 100 # cells 10/20/2020 9:54 PM CDT [facility] Platelet Estimation Increased( A) Normal, Adequate platelets 10/20/2020 9:54 PM CDT [facility] WBC Morph Normal 10/20/2020 9:54 PM CDT [facility] Anisocytosis 1+(A) None 10/20/2020 9:54 PM CDT [facility] Hypochromia 1+(A) None 10/20/2020 9:54 PM CDT [facility] Microcytosis Occasional (A) None 10/20/2020 9:54 PM CDT [facility] Large Platelets Occasional (A) None 10/20/2020 9:54 PM CDT [facility] Blood BLOOD SPECIMEN / Unknown Venipuncture / Unknown 10/20/2020 8:59 PM CDT 10/20/2020 9:11 PM CDT Moreno Rojas Eddie DO LAB - HEMATOLOGY ORD ERABLES [facility] [address] * GROSS + MICRO EXAM (09/19/1998 9:17 AM PHOTOGRAPHY PROFESSOR) Result CASE NUMBER [id number] Comment: ORDERING [...] areas of hemorrhage and central necrosis. A telephone services sales representative section is submitted in a single cassette. JS/lmj Microscopic Exam The left buttock decubitus ulcer debridement shows soft tissue with ulcer and acute and chronic inflammation and young granulation tissue. No malignancy is identified. Diagnosis I. Left buttock, decubitus ulcer, debridement A. Chronic ulcer. Director Drug Safety bk Pathologist Urban Baker M.D. [place]. 09/20/1998 1544 <1> CPT code 56593/75696 MISCELLANEOUS SAMPLES / Unknown 09/19/1998 9:17 AM PHOTOGRAPHY PROFESSOR 09/19/1998 9:17 AM PHOTOGRAPHY PROFESSOR Historical Provider LAB - PATHOLOGY/C YTOLOGY ORDERABLES Care Teams Bombsight Specialist Relationship Specialty Start Date End Date Dena James, SENIOR APPLICATION SOFTWARE ENGINEER-LIAISON PLANNER [address] [place] [address] PCP - General Drawing Supervisor 08/02/22
--- OUTSIDE RECORDS SUMMARY | 2024-09-08 11:30 | XMS_ITS | Referral Summary ---
Author Organization [facility] Address [address] [place] [address] Care Team Providers Care Back Up Machine Operator Name Role Phone Dena James Chad BEATTY-MANAGER DOCUMENTATION Primary Care Provider Source Comments [facility],non-owned Affiliates and Associated Physician Practices is amultiple site organization consisting of ambulatory clinics and hospital sitesin [place], [place], [place] and [place]. This disclosure is being madepursuant to the Care Everywhere program and may not contain all information available regarding this patient. Last updated 18.[facility] Allergies Active Allergy Reactions Criticality Noted Date [...] 4:22 AM 10/22/2020 2:34 PM Care Teams Back Up Machine Operator Relationship Specialty Start Date End Date Dena James, POLYMERIZATION OVEN TENDER-MANAGER DOCUMENTATION [address] [place] [address] PCP - General Investment Analyst 08/02/22
[2024-09-08 13:05] VITALS: BP 145/84; PULSE 81; RESP 15; O2SAT 100
== END 2024-09-08 13:26 | disposition home or self-care (01) ==
PROVIDERS: Emergency Provider Physician Assistant
DX: Z43.5 Encounter for attention to cystostomy (principal); G82.20 Paraplegia, unspecified; T14.8XXS Other injury of unspecified body region, sequela; X58.XXXS Exposure to other specified factors, sequela
CPT/HCPCS: 51705; 99283